=== PATIENT | female | born 1990 | race Caucasian/White ===

== ENCOUNTER → 2018-12-19 | Outpatient (CLI) | payer OTHER ==
--- NOTE | 2018-12-19 10:53 | US ---
EXAMINATION TYPE: US transvaginal DATE OF EXAM: 12/19/2018 COMPARISON: NONE CLINICAL HISTORY: N93.8 Other specified abnormal uterine and vaginal. Irreg bleeding TECHNIQUE: Transvaginal (TV). Date of LMP: 11/12/2018, G0 EXAM MEASUREMENTS: Uterus: 6.1 x 3.8 x 2.9 cm Endometrial Stripe: 0.4 cm Right Ovary: 3.2 x 1.5 x 1.4 cm Left Ovary: 2.3 x 1.2 x 1.0 cm 1. Uterus: Anteverted Prominent peripheral vascular vessels visualized 2. Endometrium: wnl 3. Right Ovary: wnl 4. Left Ovary: wnl 5. Bilateral Adnexa: wnl 6. Posterior cul-de-sac: no free fluid Heterogeneous uterus is seen. No suspicious focal mass is clearly identified. Endometrium is somewhat thinned for secretory phase of menstrual cycle. No free fluid. Both ovaries are present and felt normal in size without suspicious adnexal lesion. IMPRESSION: No significant finding is seen to account for patient's symptoms of irregular bleeding, e ndometrium is noted thinned for secretory phase of menstrual cycle.
== END ==
LOC: RADUSWWP 09:36
PROVIDERS: ATTEND Family Medicine
DX: N93.8 Other specified abnormal uterine and vaginal bleeding (principal)
CPT/HCPCS: 76830

== ENCOUNTER 2019-10-19 18:11 | Outpatient (CLI) | payer BC ==
[2019-10-19 19:21] LABS: Basophils % (A) 0 %; Eosinophils % (A) 0 %; HCT 32.9 % (34.0-46.0); HGB 10.9 gm/dL (11.4-16.0); Hypochromasia Slight; Lymphocytes # (A) 1.8 k/uL (1.0-4.8); Lymphocytes % (A) 19 %; MCH 30.3 pg (25.0-35.0); MCHC 33.3 g/dL (31.0-37.0); MCV 91.1 fL (80.0-100.0); Mean Platelet Volume 9.9; Monocytes # (A) 0.5 k/uL (0-1.0); Monocytes % (A) 5 %; Neutrophils % (A) 74 %; Platelet Count 274 k/uL (150-450); RBC 3.61 m/uL (3.80-5.40); RDW 12.3 % (11.5-15.5); WBC 9.5 k/uL (3.8-10.6)
[2019-10-19 19:26] LABS: ALT 10 U/L (4-34); AST 21 U/L (14-36); African American GFR (CKD) >90 (>60 ml/min/1.73 sqM); Blood Urea Nitrogen 7 mg/dL (7-17); LDH 376 U/L (313-618); Non-African American GFR(CKD) >90 (>60 ml/min/1.73 sqM); Uric Acid 3.7 mg/dL (3.7-7.4)
[2019-10-19 19:51] LABS: Appearance,Urine Cloudy (Clear); Bacteria,Urine Occasional /hpf; Bilirubin,Urine Negative (Negative); Blood,Urine Trace (Negative); Calcium Oxalate Crystals,Urine Occasional /hpf; Color,Urine Yellow; Glucose,Urine (UA) 3+ (Negative); Ketones,Urine 1+ (Negative); Leukocyte Esterase,Urine Large (Negative); Mucus,Urine Many /hpf; Nitrite,Urine Negative (Negative); Protein,Urine 2+ (Negative); RBC,Urine 14 /hpf (0-5); Specific Gravity,Urine 1.034 (1.001-1.035); Squamous Epithelial Cell,Urine 23 /hpf (0-4); WBC,Urine 87 /hpf (0-5)
[2019-10-19 20:28] VITALS: RESP 18; TEMP 98.8
[2019-10-19 20:30] VITALS: BP 127/64; PULSE 92
--- NOTE | 2019-11-12 11:13 | P.MSEPDOC ---
Presenting Problems - Arrival Data Date of Arrival on Unit: 10/19/19 Time of Arrival on Unit: 18:11 Mode of Transport: Ambulatory - Complaint OB-Reason for Admission/Chief Complaint: PIH Comment: admitted and assessed by Lori Kuo RN. Medical History - Information : 2 Para: 0 Term: 0 : 0 Abortions: Spontaneous or Elective: 1 Number of Living Children: 0 - Gestational Age Gestational Age by ZULMA (wks/days): 34 Weeks and 5 Days Review of Systems - Review of Systems Constitutional: No problems Breast: No problems ENT: No problems Cardiovascular: No problems Respiratory: No problems Gastrointestinal: No problems Genitourinary: No problems Musculoskeletal: No problems Neurological: No problems Skin: No problems Vital Signs - Temperature Temperature: 98.8 F Temperature Source: Oral - Pulse Pulse Oximetery Pulse Rate: 92 Pulse Assessment Method: Automatic Cuff - Respirations Respiratory Rate: 18 Oxygen Delivery Method: Room Air - Blood Pressure Right Arm Blood Pressure: 127/64 Blood Pressure Mean: 85 Blood Pressure Source: Automatic Cuff Medical Screen Scoring (Pre) - Cervical Exam Dilation: Exam Deferred Effacement: Exam Deferred Membranes: Intact - Uterine Contractions Frequency: N/A Duration: N/A Intensity: N/A - Maternal Vital Signs Maternal Temperature: N/A Maternal Blood Pressure: N/A Signs of Preeclampsia: Edema of Face = 4 Maternal Respirations: N/A - Maternal Trauma Maternal Trauma: N/A - Assessment - Baby A Baseline FHR: 145 Heart Rate - NICHD Category: Category I (Normal) = 0 NST: Reactive Position: N/A Station: N/A - Total Score - Baby A Total Score - Baby A: 4 - Total Score - Baby B Total Score - Baby B: 4 - Total Score - Baby C Total Score - Baby C: 4 - Level of Risk - Baby A Level of Risk - Baby A: Low (0-5) - Level of Risk - Baby B Level of Risk - Baby B: Low (0-5) - Level of Risk - Baby C Level of Risk - Baby C: Low (0-5) Physician Notification (Pre) - Physician Notified Physician Notified Date: 10/19/19 Physician Notified Time: 18:42 New Order Received: Yes ([facility] work up) - Notification Comment Comment: Nithin Ling RN, notified Dr. Camejo, at 1955, of lab results per previous orders given to day shift RN, Lori Kuo. Orders for pt to be discharged home with orders for bedrest/no work, increase fluid intake, and call office first thing Monday for follow up apt given. Medical Screen Scoring (Post) - Cervical Exam Dilation: Exam Deferred Effacement: Exam Deferred Membranes: Intact - Uterine Contractions Frequency: N/A Duration: N/A Intensity: N/A - Maternal Vital Signs Maternal Temperature: N/A Maternal Blood Pressure: N/A Signs of Preeclampsia: Edema of Face = 4 Maternal Respirations: N/A - Pain Assessment Pain Location and Character: Generalized Pain Scale Used: Numeric (1 - 10) Pain Intensity: 0 Pain Management Goal: 0 Pain Behavior: None Exhibited, Vocalization - Maternal Trauma Maternal Trauma: N/A - Assessment - Baby A Heart Rate: 145 Heart Rate - NICHD Category: Category I (Normal) = 0 NST: Reactive Position: N/A Station: N/A - Total Score Total Score - Baby A: 4 Total Score - Baby B: 4 Total Score - Baby C: 4 - Post Treatment Level of Risk Post Treatment Level of Risk - Baby A: Low (0-5) Post Treatment Level of Risk - Baby B: Low (0-5) Post Treatment Level of Risk - Baby C: Low (0-5) Physician Notification (Post) - Physician Notified Physician Notified Date: 10/19/19 Physician Notified Time: 19:55 Physician/Practitioner Notified:: Bashir Spoke With: Bashir New Order Received: Yes (bedrest,no work, increase fluids for hydration.) Disposition - Disposition OB Disposition: Discharge to home Discharge Date: 10/19/19 Discharge Time: 20:08 I agree with the RN Medical Screening Exam: Yes Risk & Benefit of care provided described in d/c instruction: Yes Diagnosis: RELATED CONDITIONS, UNSPECIFIED, THIRD TRIMESTER
== END 2019-10-19 20:08 | disposition home or self-care (01) ==
LOC: FBPOP 18:11
PROVIDERS: ATTEND Obstetrics & Gynecology
DX: O13.3 Gestational [pregnancy-induced] hypertension without significant proteinuria, third trimester (principal); Z3A.34 34 weeks gestation of pregnancy
CPT/HCPCS: 59025; 81001; 82565; 83615; 84450; 84460; 84520; 84550; 85025; 99215

== ENCOUNTER 2019-11-15 17:58 | Inpatient (IN) | payer BC ==
[2019-11-15] MEDS ORDERED: TERBUTALINE 1 MG/ML VIAL SQ PRN (18:55)
[2019-11-15] MEDS ORDERED: METHYLERGONOVINE 0.2 MG/ML 1 ML AMP IM PRN (18:55)
[2019-11-15] MEDS ORDERED: LIDOCAINE 0.5% (PF) 5 MG/ML (50 ML SDV) SQ PRN (18:55)
[2019-11-15] MEDS ORDERED: OXYTOCIN 10 UNIT/ML 1 ML VIAL IM PRN (18:55)
[2019-11-15] MEDS ORDERED: CARBOPROST TROMETHAMINE 250 MCG/ML 1 ML AMP IM PRN (18:55)
[2019-11-15] MEDS ORDERED: PENICILLIN G POTASSIUM 5,000,000 UNIT in DEXTROSE 5% IN WATER 100 ML IVPB STA ×2 (19:04)
[2019-11-15 19:23] LABS: Basophils # (A) 0.1 k/uL (0-0.2); Basophils % (A) 1 %; Eosinophils % (A) 0 %; HGB 11.7 gm/dL (11.4-16.0); Hypochromasia Slight; Lymphocytes # (A) 1.8 k/uL (1.0-4.8); Lymphocytes % (A) 14 %; MCH 28.1 pg (25.0-35.0); MCHC 31.7 g/dL (31.0-37.0); MCV 88.7 fL (80.0-100.0); Mean Platelet Volume 9.7; Monocytes # (A) 0.4 k/uL (0-1.0); Monocytes % (A) 3 %; Neutrophils # (A) 10.6 k/uL (1.3-7.7); Neutrophils % (A) 81 %; Platelet Count 278 k/uL (150-450); RBC 4.17 m/uL (3.80-5.40); RDW 13.5 % (11.5-15.5); WBC 13.2 k/uL (3.8-10.6)
[2019-11-15] MEDS: LACTATED RINGERS 1,000 ML IV SCH (19:28)
--- NOTE | 2019-11-15 19:30 | P.HPOB ---
History of Present Illness H&P Date: 11/15/19 This is a 28-year-old female 2 para 0010 EDC 11/25/2019 at 38-4/7 weeks' gestation. Patient presented to labor and delivery with a history of pelvic cramping, and possible ruptured membranes. Fetus has been active throughout the . She denies headache, visual changes, or right upper quadrant pain. history is significant for AB+ blood type, rubella status immune. Urine culture, hepatitis B surface antigen, HIV testing, gonorrhea and come lytic cultures all negative. One-hour Glucola 132. Group B strep cultures positive. Past medical history is essentially negative. Past surgical history wisdom teeth extracted. Current medications vitamins. ALLERGIES none known. Family history significant for hypertension, diabetes. Reproductive history significant for spontaneous miscarriage at 5 weeks gestation. Social history patient is never been a smoker, she is a nurse at our hospital, she is to her [employer]. She denies alcohol or drug use. On exam patient is 5 foot 5 inches, 219 pounds, initial blood pressure 170/97, repeat 171/97. Repeat blood pressures every 5 minutes remain in the same range. Pulse 1:30, respirations 20, temperature 98.3, 97% O2 saturation. The extremities reveal 2+ edema. She has normal reflexes at 1+ in bilateral lower extremities. Chest is clear in all martinez. Cervix is 9-1/2 cm dilated, 100% effaced, -1 station, vertex presentation. In examining the patient spontaneous amniorrhexis occurs at the bedside, thin meconium-stained fluid. heart rate is in the 140s with frequent accelerations consistent with reactive NST. Impression 38-4/7 weeks intrauterine , severe preeclamptic by blood pressure parameters, active labor, thin meconium-stained fluid. Plan: anesthesia has been notified and labetolol is being given at the bedside with close maternal and surveillance. Consideration for magnesium sulfate. AST, ALTs, uric acid, CBC all drawn. Anticipate normal spontaneous vaginal delivery. Review of Systems Patient denies headache, visual changes, right upper quadrant pain. Constitutional: Reports as per HPI Past Medical History Past Medical History: No Reported History History of Any Multi-Drug Resistant Organisms: None Reported Past Surgical History: No Surgical Hx Reported Smoking Status: Never smoker Medications and Allergies Home Medications Medication Instructions Recorded Confirmed Type Acetaminophen [Tylenol] 325 mg PO DIRECTED PRN 10/19/19 11/15/19 History Pnv No.95/Ferrous Fum/Folic AC 1 each PO DAILY MDD 1 tab 10/19/19 11/15/19 History [ Multivitamin Tablet] Allergies Allergy/AdvReac Type Severity Reaction Status Date / Time No Known Allergies Allergy Verified 06/21/18 09:10 Exam Intake and Output 11/15/19 11/15/19 11/15/19 06:59 14:59 22:59 Other: Weight 99.337 kg See dictation under HPI please Assessment and Plan Assessment: 38-4/7 weeks intrauterine , active spontaneous labor, thin meconium- stained fluid, severe preeclampsia her blood pressure parameters. Labs pending. Anesthesia aware and at the bedside. Labetalol has been given 10 mg IV push, 5 mg IV push, 5 mg IV push, and an additional 10 mg IV push. Blood pressure now 135/85. Pulse 103. Plan: Continue close maternal and surveillance. Consider magnesium sulfate prophylaxis. Anticipating normal spontaneous vaginal delivery. Time with Patient: Greater than 30
[2019-11-15 19:35] LABS: Appearance,Urine Cloudy (Clear); Bilirubin,Urine Negative (Negative); Blood,Urine Moderate (Negative); Calcium Oxalate Crystals,Urine Few /hpf; Color,Urine Yellow; Glucose,Urine (UA) 1+ (Negative); Leukocyte Esterase,Urine Moderate (Negative); Mucus,Urine Few /hpf; Nitrite,Urine Negative (Negative); Protein,Urine 1+ (Negative); RBC,Urine 54 /hpf (0-5); Specific Gravity,Urine 1.025 (1.001-1.035); Squamous Epithelial Cell,Urine 2 /hpf (0-4); Urobilinogen,Urine <2.0 mg/dL (<2.0); WBC,Urine 14 /hpf (0-5)
[2019-11-15 19:39] LABS: Ketones,Urine 2+ (Negative)
[2019-11-15 19:48] LABS: ALT 12 U/L (4-34); AST 25 U/L (14-36); African American GFR (CKD) >90 (>60 ml/min/1.73 sqM); Blood Urea Nitrogen 8 mg/dL (7-17); LDH 489 U/L (313-618); Non-African American GFR(CKD) >90 (>60 ml/min/1.73 sqM); Uric Acid 3.8 mg/dL (3.7-7.4)
[2019-11-15 20:03] LABS: INR 0.9 (<1.2); Partial Thromboplastin Time 24.1 sec (22.0-30.0); Prothrombin Time 9.3 sec (9.0-12.0)
[2019-11-15] MEDS ORDERED: diphenhydrAMINE 50 MG/ML 1 ML VIAL IVP PRN ×2 (21:24)
[2019-11-15] MEDS ORDERED: diphenhydrAMINE 25 MG CAP PO PRN (21:24)
[2019-11-15] MEDS ORDERED: diphenhydrAMINE 50 MG CAP PO PRN (21:24)
[2019-11-15] MEDS ORDERED: LANOLIN CREAM 5 GM TUBE TOPICAL PRN (21:24)
[2019-11-15] MEDS ORDERED: BENZOCAINE/MENTHOL SPRAY 1 GM/SPRAY AEROSOL TOPICAL PRN (21:24)
[2019-11-15] MEDS ORDERED: diphenhydrAMINE ELIXIR 25 MG/10 ML CUP PO PRN (21:24)
[2019-11-15] MEDS ORDERED: HYDROCORTISONE 2.5% RECTAL CREAM 30 GM TUBE RECTAL PRN (21:24)
[2019-11-15] MEDS ORDERED: ZOLPIDEM 5 MG TAB PO PRN (21:24)
[2019-11-15] MEDS ORDERED: WITCH HAZEL 1 EACH MED..PAD TOPICAL PRN (21:24)
[2019-11-15] MEDS ORDERED: SIMETHICONE 80 MG CHEWABLE PO PRN (21:24)
--- NOTE | 2019-11-15 21:24 | P.PROBDLV ---
Vaginal Delivery Note - . Vaginal Delivery Note: This is a 28-year-old female 2 para 0010 EDC 11/25/2019 at 38-4/7 weeks' gestation. Patient presented to labor and delivery with a thought that she had fluid leakage and that her water broke. Her membranes were noted to be intact, however she was 9 cm dilated on admission. Additionally, initial blood pressure was 170/9 7. Serial blood pressures every 5 minutes apart remained in the same level. Preeclamptic labs were drawn, patient was admitted. Spontaneous amniorrhexis revealed thin meconium-stained fluid. heart rate was very reassuring throughout the first and second stages of labor. Anesthesia was summoned, labetalol was given 10 mg, followed by 5 mg, followed by 5 mg, followed by an additional 10 mg for total of 30 mg IV push. Blood pressure settled into the 130s over 80s. Pulse went down to the 90-100 range, 130 on admission. Please see admitting history and physical for details. Analgesic options were offered and declined. Patient became completely dilated at 2010 hours and began the second stage of labor at that time. Blood pressure remained in the 130s over 80s. Ultimately the perineal body was prepped and draped in usual sterile fashion. Infant's head delivered occiput anterior and he restituted accordingly. There was no nuchal cord noted. The left or anterior shoulder delivered from underneath the pubic symphysis easily, at which time the oropharynx, nasopharynx, and external nares were all bulb suctioned on the perineal body. Patient was officially delivered of a liveborn male infant at 2053 hours. Umbilical cord was doubly clamped and ligated, he was handed to waiting nurses for evaluation where scores of 8 and 9 at one and 5 minutes respectively were given. The weight 8 lbs. 6 oz. or 3790 g. The placenta delivered spontaneously, it was inspected and noted to be intact with trivascular cord at 2055 hours. Uterus is then massaged. Careful inspection of the cervix, vagina, perineum, periurethral, and perirectal areas revealed a second-degree midline laceration. This was injected with 1% lidocaine and repaired in the usual fashion using 3-0 repeat suture. Total estimated blood loss 400 mL's. All sponge needle and enhancement counts are correct at the end of the procedure. Patient is requesting circumcision for her son. Blood pressure upon completion of delivery was 135/82. All preeclamptic labs were within normal limits. Blood pressure will be monitored carefully after delivery. My diagnosis at this time would be severe - induced hypertension upon admission, instead of the thought of severe preeclampsia.
[2019-11-15] MEDS ORDERED: OXYTOCIN 20 UNITS/1000 ML NS 1,000 ML IV SCH (21:30)
[2019-11-15] MEDS: ACETAMINOPHEN TAB 325 MG TAB PO PRN (22:18)
[2019-11-15] MEDS ORDERED: PENICILLIN G POTASSIUM 2,500,000 UNIT in DEXTROSE 5% IN WATER 100 ML IVPB SCH ×2 (23:00)
[2019-11-16] MEDS: ACETAMINOPHEN TAB 325 MG TAB PO PRN (06:41)
[2019-11-16] MEDS: SENNOSIDES-DOCUSATE SODIUM 1 EACH TAB PO SCH ×2 (08:44→21:30)
[2019-11-16] MEDS ORDERED: LABETALOL 100 MG TAB PO SCH (10:00)
--- NOTE | 2019-11-16 10:19 | P.PN ---
Subjective Progress Note Date: 11/16/19 Principal diagnosis: day #1 Denies headache, visual changes, right upper quadrant pain. Minimal to moderate lochia rubra. Pain well controlled. Objective - Vital Signs Vital signs: Vital Signs Temp 99.4 F 11/16/19 08:00 Pulse 120 H 11/16/19 08:00 Resp 18 11/16/19 08:00 BP 141/84 11/16/19 08:00 Pulse Ox 97 11/16/19 08:00 Intake & Output 11/15/19 11/16/19 11/16/19 18:59 06:59 18:59 Output Total 1076 Balance -1076 Weight 99.337 kg Output: Gastric Drainage 276 Estimated Blood Loss 400 Other 400 Other: # Voids 1 1 - Constitutional General appearance: Present: average body habitus, cooperative - EENT Eyes: Present: PERRLA ENT: Present: hearing grossly normal - Neck Neck: Present: normal ROM Thyroid: bilateral: normal size - Respiratory Respiratory: bilateral: CTA - Cardiovascular Rhythm: regular - Gastrointestinal General gastrointestinal: Present: normal bowel sounds - Genitourinary Genitourinary Comment(s): Perineum clean and dry, intact. Fundus firm, midline, symmetric, 18 week size. - Integumentary Integumentary: Present: normal - Neurologic Neurologic: Present: CNII-XII intact - Musculoskeletal Musculoskeletal: Present: gait normal, strength equal bilaterally - Psychiatric Psychiatric: Present: A&O x's 3, appropriate affect, intact judgment & insight - Labs CBC & Chem 7: 11/15/19 19:10 11/15/19 19:10 Labs: Abnormal Lab Results - Last 24 Hours (Table) 11/15/19 11/15/19 11/15/19 Range/Units 19:10 19:10 19:20 WBC 13.2 H (3.8-10.6) k/uL Neutrophils # 10.6 H (1.3-7.7) k/uL Fibrinogen 596 H (200-500) mg/dL Urine Appearance Cloudy H (Clear) Urine Protein 1+ H (Negative) Urine Glucose (UA) 1+ H (Negative) Urine Ketones 2+ H (Negative) Urine Blood Moderate H (Negative) Ur Leukocyte Esterase Moderate H (Negative) Urine RBC 54 H (0-5) /hpf Urine WBC 14 H (0-5) /hpf Calcium Oxalate Crystal Few H (None) /hpf Urine Mucus Few H (None) /hpf Assessment and Plan Assessment: day #1. Blood pressures 130s to 140s over 70s to 80s, pulse remains 120 to 130s. Plan: We will begin labetalol 100 mg twice a day. Continue care and vital sign surveillance. Likely discharge home tomorrow. Circumcision performed. Time with Patient: Less than 30
[2019-11-16] MEDS: IBUPROFEN 600 MG TAB PO PRN (16:51)
[2019-11-16] MEDS: LABETALOL 200 MG TAB PO SCH (21:29)
[2019-11-16] MEDS: LACTATED RINGERS 1,000 ML IV SCH (22:58)
[2019-11-17] MEDS: IBUPROFEN 600 MG TAB PO PRN (05:06)
--- NOTE | 2019-11-17 09:25 | P.DS ---
Providers Date of admission: 11/15/19 18:51 Expected date of discharge: 11/17/19 Attending physician: Eugenia Brantley Primary care physician: Stated None Hospital Course: This is a 28-year-old white female 2 para 0010 EDC 11/25/2009 at 38-4/7 weeks' gestation. Patient presented from home in active spontaneous labor. Blood pressure on admission 170/97. This was checked every 5 minutes and sustained. Anesthesia consult was obtained. Artificial amniorrhexis revealed light meconium-stained fluid. Labetalol was pushed at the bedside 10 mg, 5 mg, 5 mg, and finally an additional 10 mg for good blood pressure control. Blood p ressure settled in the 135/85 range, pulse on admission 1:30. Pulse decreased to 107 with above regime. Please see my dictated note for details on admission. Patient went on to ultimately to deliver a liveborn male infant with scores of 8 and 9 at one and 5 minutes respectively. He weighed 3790 g or 8 lbs. 6 oz. There was a second-degree perineal laceration encountered and repaired. Estimated blood loss 400 mL's. Please see dictated delivery note for details. Placenta was sent to pathology for severe -induced hypertension, trivascular cord, otherwise intact with a fair amount of calcifications. In the . Blood pressures continued to elevate, and have subsequently stabilized on labetalol 200 mg twice daily. Blood pressure this morning 137/85. Patient continues to deny any headache, visual changes, or right upper quadrant pain. All preeclamptic labs on admission were noted to be within normal limits. male has been circumcised and is doing well. Breasts are not engorged, double electric breast pump prescription is given. Perineal body is clean and dry. Extremities continued to reveal 2+ edema, normal reflexes. Fundus is firm, midline, symmetric, 18 week size. Patient is judged to be in reasonably good condition for discharge home. I have given her prescription for labetalol 200 mg to be taken 1 pill twice daily. Patient will continue to take her blood pressure on a daily basis. I've asked her to follow-up in the office in 2 weeks with these blood pressure readings. I've asked her to call our office with any headache, visual changes, or right upper quadrant pain. She will call with any fevers shakes or chills, foul smelling or copious lochia, with the passage of large blood clots, with any pain not alleviated by [id number] products, or indeed with any concerns. [place] infant will follow-up with harmonic analyst as per recommendations. Patient Condition at Discharge: Good Plan - Discharge Summary New Discharge Prescriptions: No Action Pnv No.95/Ferrous Fum/Folic AC [ Multivitamin Tablet] 1 each PO DAILY MDD 1 tab Acetaminophen [Tylenol] 325 mg PO DIRECTED PRN PRN Reason: Pain Discharge Medication List Acetaminophen [Tylenol] 325 mg PO DIRECTED PRN 10/19/19 [History] Pnv No.95/Ferrous Fum/Folic AC [ Multivitamin Tablet] 1 each PO DAILY MDD 1 tab 10/19/19 [History] Follow up Appointment(s)/Referral(s): Eugenia Brantley DO [Doctor of Osteopathic Medicine] - 2 Weeks
[2019-11-17] MEDS: SENNOSIDES-DOCUSATE SODIUM 1 EACH TAB PO SCH ×2 (09:35→20:49)
[2019-11-17 09:36] VITALS: RESP 18
[2019-11-17] MEDS: LABETALOL 200 MG TAB PO SCH ×2 (16:20→20:16)
[2019-11-17] MEDS: ACETAMINOPHEN TAB 325 MG TAB PO PRN (18:14)
[2019-11-17 18:42] VITALS: BP 118/80; PULSE 103; TEMP 98.4
== END 2019-11-17 20:30 | disposition home or self-care (01) | DRG 807 ==
LOC: FBPOP 17:58 → 4FBP 18:51
PROVIDERS: ADMIT Obstetrics & Gynecology; ATTEND Obstetrics & Gynecology Obstetrics
PROC: 0KQM0ZZ Repair Perineum Muscle, Open Approach (ICD-10-PCS; principal; 2019-11-15)
PROC: 10E0XZZ Delivery of Products of Conception, External Approach (ICD-10-PCS; principal; 2019-11-15)
DX: O14.14 Severe pre-eclampsia complicating childbirth (principal); Z37.0 Single live birth; O70.1 Second degree perineal laceration during delivery; O77.0 Labor and delivery complicated by meconium in amniotic fluid; Z3A.38 38 weeks gestation of pregnancy; Z79.899 Other long term (current) drug therapy; Z83.3 Family history of diabetes mellitus; Z82.49 Family history of ischemic heart disease and other diseases of the circulatory system
CPT/HCPCS: 81001; 81003; 82565; 83615; 84450; 84460; 84520; 84550; 85025; 85384; 85610; 85730; 86850; 86900; 86901; 88307

== ENCOUNTER 2020-06-08 07:52 | Observation (INO) | payer BC ==
[2020-06-08] MEDS ORDERED: ORPHENADRINE 30 MG/ML 2 ML VIAL IVP STA (08:34)
[2020-06-08] MEDS ORDERED: KETOROLAC 15 MG/ML 1 ML VIAL IVP STA (08:34)
--- NOTE | 2020-06-08 08:42 | ED ---
General Adult HPI <Dawson Clancy - Last Filed: 06/08/20 10:45> - General Source: patient, EMS, RN notes reviewed Mode of arrival: EMS Limitations: no limitations <Chico Ahumada - Last Filed: 06/08/20 14:26> - General Chief complaint: Back Pain/Injury Stated complaint: Back Pain Time Seen by Provider: 06/08/20 08:20 - History of Present Illness Initial comments: 29-year-old female with a past medical history of back pain presents to the emergency department for a chief complaint of low back pain radiating down the left leg. Patient reports that she has a history of back pain that comes and goes. States she has seen Dr. Tatum before and had an MRI performed. Patient reports she had a bulging disc at that time which was a couple years ago. Patient reports that 5 days ago she was painting her house which triggered her pain. States that 4 days ago she went to lift her toddler out of the car seat and felt a sudden pain in the left lower back. Patient states it is painful to walk or stand up straight. Patient denies any weakness of the legs. Patient denies any bladder or bowel changes. Denies any fevers or chills. Patient denies any chance of . Patient has no other complaints at this time including shortness of breath, chest pain, abdominal pain, nausea or vomiting, headache, or visual changes. (Chico Ahumada) - Related Data Home Medications Medication Instructions Recorded Confirmed HYDROcodone/APAP 7.5-325MG [Leming 1 tab PO ONCE PRN 06/08/20 06/08/20 7.5-325] Allergies Allergy/AdvReac Type Severity Reaction Status Date / Time No Known Allergies Allergy Verified 06/08/20 11:18 Review of Systems ROS Other: All systems not noted in ROS Statement are negative. <Dawson Clancy - Last Filed: 06/08/20 10:45> ROS Other: All systems not noted in ROS Statement are negative. <Chico Ahumada - Last Filed: 06/08/20 14:26> ROS Statement: Those systems with pertinent positive or pertinent negative responses have been documented in the HPI. Past Medical History Past Medical History: No Reported History History of Any Multi-Drug Resistant Organisms: None Reported Past Surgical History: No Surgical Hx Reported Past Anesthesia/Blood Transfusion Reactions: No Reported Reaction Past Psychological History: No Psychological Hx Reported Smoking Status: Never smoker Past Alcohol Use History: Rare Past Drug Use History: None Reported - Past Family History Mother Family Medical History: No Reported History <Chico Ahumada - Last Filed: 06/08/20 14:26> General Exam Limitations: no limitations General appearance: alert, in no apparent distress Head exam: Present: atraumatic, normocephalic, normal inspection Eye exam: Present: normal appearance, PERRL, EOMI. Absent: scleral icterus, conjunctival injection, periorbital swelling ENT exam: Present: normal exam, mucous membranes moist Neck exam: Present: normal inspection, full ROM. Absent: tenderness, meningismus, lymphadenopathy Respiratory exam: Present: normal lung sounds bilaterally. Absent: respiratory distress, wheezes, rales, rhonchi, stridor Cardiovascular Exam: Present: regular rate, normal rhythm, normal heart sounds. Absent: bradycardia, tachycardia, irregular rhythm GI/Abdominal exam: Present: soft, normal bowel sounds. Absent: distended, tenderness, guarding, rebound, rigid Back exam: Absent: CVA tenderness (R), CVA tenderness (L), paraspinal tenderness, vertebral tenderness Neurological exam: Present: alert <Chico Ahumada - Last Filed: 06/08/20 14:26> Course <Dawson Clancy - Last Filed: 06/08/20 10:45> Vital Signs 06/08/20 06/08/20 07:52 10:20 Temperature 99.0 F Pulse Rate 105 H Respiratory 17 Rate Blood Pressure 129/81 128/76 O2 Sat by Pulse 99 Oximetry - Reevaluation(s) Reevaluation #1: 06/08/20 10:45 PA supervision: I did personally evaluate this case patient will be admitted for intractable back pain. (Dawson Clancy) Medical Decision Making - Lab Data Result diagrams: 06/08/20 11:31 06/08/20 11:31 <Chico Ahumada - Last Filed: 06/08/20 14:26> - Medical Decision Making Patient seen and evaluated in the emergency room. Patient came in by EMS. Patient reports she had to crawl to the bathroom as her pain was so intense. She denies bladder or bowel changes, numbness or tingling in the groin or buttock, denies fevers. I did give patient several different pain medications. I attempted to ambulate patient and she is unable to stand at this time secondary to pain. is very concerned. Patient tried to call Dr. Tatum who she has seen in the past and they cannot see her until June. At this time patient will be admitted. Dr. Hurtado requests CT of the lumbar spine with contrast. (Chico Ahumada) Disposition <Dawson Clancy - Last Filed: 06/08/20 10:45> Is patient prescribed a controlled substance at d/c from ED?: No Time of Disposition: 10:48 <Chico Ahumada - Last Filed: 06/08/20 14:26> Clinical Impression: Intractable back pain, Unable to ambulate Disposition: ADMITTED IP TO THIS HOSP Condition: Fair
[2020-06-08] MEDS ORDERED: ONDANSETRON 4 MG/2 ML VIAL IVP STA (09:31)
[2020-06-08] MEDS ORDERED: HYDROmorphone 0.5 MG/0.5 ML SYRINGE IVP STA (09:31)
[2020-06-08] MEDS ORDERED: methylPREDNISolone SOD SUCCI 125 MG/2 ML VIAL IV STA (09:38)
[2020-06-08] MEDS ORDERED: HYDROmorphone 0.5 MG/0.5 ML SYRINGE IVP PRN (10:43)
[2020-06-08] MEDS ORDERED: NALOXONE 0.4 MG/ML 1 ML VIAL IV PRN (10:43)
[2020-06-08 11:38] LABS: Basophils % (A) 1 %; Eosinophils % (A) 1 %; HCT 41.9 % (34.0-46.0); HGB 13.3 gm/dL (11.4-16.0); Lymphocytes # (A) 1.3 k/uL (1.0-4.8); Lymphocytes % (A) 25 %; MCH 28.9 pg (25.0-35.0); MCHC 31.8 g/dL (31.0-37.0); MCV 91.1 fL (80.0-100.0); Mean Platelet Volume 7.5; Monocytes # (A) 0.2 k/uL (0-1.0); Monocytes % (A) 4 %; Neutrophils # (A) 3.7 k/uL (1.3-7.7); Neutrophils % (A) 69 %; Platelet Count 237 k/uL (150-450); RDW 13.3 % (11.5-15.5); WBC 5.4 k/uL (3.8-10.6)
[2020-06-08 11:54] LABS: HCG,Qualitative Serum Not Detected
[2020-06-08 11:56] LABS: ALT 11 U/L (4-34); AST 19 U/L (14-36); African American GFR (CKD) >90 (>60 ml/min/1.73 sqM); Albumin 4.4 g/dL (3.5-5.0); Alkaline Phosphatase 122 U/L (38-126); Anion Gap 8 mmol/L; Blood Urea Nitrogen 12 mg/dL (7-17); Calcium 9.3 mg/dL (8.4-10.2); Carbon Dioxide 27 mmol/L (22-30); Chloride 104 mmol/L (98-107); Glucose 97 mg/dL (74-99); Non-African American GFR(CKD) >90 (>60 ml/min/1.73 sqM); Potassium 4.3 mmol/L (3.5-5.1); Sodium 139 mmol/L (137-145); Total Bilirubin 0.4 mg/dL (0.2-1.3); Total Protein 7.5 g/dL (6.3-8.2)
--- NOTE | 2020-06-08 12:28 | CT ---
EXAMINATION TYPE: CT lumbar spine w con DATE OF EXAM: 06/08/2020 COMPARISON: None HISTORY: 29-year-old female Back pain. TECHNIQUE: Contiguous axial scanning of the lumbar spine performed with IV Contrast, patient injected with 100 mL of Isovue 300. Coronal/sagittal reconstructions performed. CT DLP: 918 mGycm Automated exposure control for dose reduction was used. FINDINGS: Vertebral body heights are preserved and alignment is maintained. Mild degenerative disc disease L4-L5 and L5-S1 with disc bulging. Mild endplate spondylosis at L5-S1. Minimal facet spurring on the right at L5-S1. At L4-L5, posterior disc bulge impressing on the ventral thecal sac. No significant spinal canal sten osis. There is minimal inferior left neuroforaminal narrowing. At L5-S1, diffuse disc bulge with possible superimposed left paracentral disc extrusion that may impi nge the traversing left S1 nerve root and contributes to a mild overall spinal canal stenosis. Refer to axial images 69 and 70 and sagittal image 30. Mild left neuroforaminal stenosis. IMPRESSION: 1. MILD DEGENERATIVE DISC DISEASE LOWER LUMBAR SPINE. MINIMAL FACET SPURRING PARTICULARLY AT L5-S1. 2. BULGING DISC AT L5-S1 WITH POSSIBLE SUPERIMPOSED LEFT PARACENTRAL DISC EXTRUSION THAT MAY IMPINGE THE TRAVERSING LEFT S1 NERVE ROOT AND CONTRIBUTING TO A MILD OVERALL SPINAL CANAL STENOSIS. MILD OVER ALL LEFT NEUROFORAMINAL STENOSIS. CORRELATE FOR CORRESPONDING RADICULAR SYMPTOMS.
[2020-06-08 13:23] LABS: Appearance,Urine Clear (Clear); Bilirubin,Urine Negative (Negative); Blood,Urine Negative (Negative); Color,Urine Yellow; Glucose,Urine (UA) Negative (Negative); Ketones,Urine Negative (Negative); Leukocyte Esterase,Urine Trace (Negative); Mucus,Urine Moderate /hpf; Nitrite,Urine Negative (Negative); Protein,Urine Negative (Negative); RBC,Urine 1 /hpf (0-5); Specific Gravity,Urine 1.031 (1.001-1.035); Squamous Epithelial Cell,Urine 4 /hpf (0-4); Urobilinogen,Urine <2.0 mg/dL (<2.0); WBC,Urine 3 /hpf (0-5)
[2020-06-08] MEDS ORDERED: CYCLOBENZAPRINE 5 MG TAB PO PRN (15:15)
--- NOTE | 2020-06-08 15:48 | P.HPIM ---
History of Present Illness 29-year-old female with a past medical history of back pain presents to the emergency department for a chief complaint of low back pain radiating down the left leg. Patient reports that she has a history of back pain that comes and goes. States she has seen Dr. Tatum before and had an MRI performed. Patient reports she had a bulging disc at that time which was a couple years ago. Patient reports that 5 days ago she was painting her house which triggered her pain. States that 4 days ago she went to lift her toddler out of the car seat and felt a sudden pain in the left lower back. Patient states it is painful to walk or stand up straight. Patient denies any weakness of the legs. Patient denies any bladder or bowel changes. Denies any fevers or chills. Patient denies any chance of . Patient has no other complaints at this time including shortness of breath, chest pain, abdominal pain, nausea or vomiting, headache, or visual changes. Patient denied any weakness in any of the legs. Patient had similar back pain in the past has seen also by surgery in the past. Review of Systems REVIEW OF SYSTEMS: CONSTITUTIONAL: No fever, no malaise, no fatigue. HEENT: No recent visual problems or hearing problems. Denied any sore throat. CARDIOVASCULAR: No chest pain, orthopnea, PND, no palpitations, no syncope. PULMONARY: No shortness of breath, no cough, no hemoptysis. GASTROINTESTINAL: No diarrhea, no nausea, no vomiting, no abdominal pain. NEUROLOGICAL: No headaches, no weakness, no numbness. HEMATOLOGICAL: Denies any bleeding or petechiae. GENITOURINARY: Denies any burning micturition, frequency, or urgency. MUSCULOSKELETAL/RHEUMATOLOGICAL: As mentioned in HPI ENDOCRINE: Denies any polyuria or polydipsia. The rest of the 14-point review of systems is negative. Past Medical History Past Medical History: No Reported History Additional Past Medical History / Comment(s): Low back pain, bulging discs, pt is currently breast feeding. History of Any Multi-Drug Resistant Organisms: None Reported Past Surgical History: No Surgical Hx Reported Additional Past Surgical History / Comment(s): [place] teeth extractions with sedation. Past Anesthesia/Blood Transfusion Reactions: No Reported Reaction Past Psychological History: No Psychological Hx Reported Smoking Status: Never smoker Past Alcohol Use History: Rare Past Drug Use History: None Reported - Past Family History Mother Family Medical History: No Reported History Additional Family Medical History / Comment(s): Mother is healthy Father Family Medical History: Hypertension Medications and Allergies Home Medications Medication Instructions Recorded Confirmed Type HYDROcodone/APAP 7.5-325MG [[place] 1 tab PO ONCE PRN 06/08/20 06/08/20 History 7.5-325] Allergies Allergy/AdvReac Type Severity Reaction Status Date / Time No Known Allergies Allergy Verified 06/08/20 11:18 Physical Exam Vitals: Vital Signs Temp Pulse Pulse Resp BP BP Pulse Ox 06/08/20 12:48 98.6 F 88 16 131/79 95 06/08/20 10:20 128/76 06/08/20 07:52 99.0 F 105 H 17 129/81 99 Intake and Output 06/08/20 06/08/20 06/08/20 06:59 14:59 22:59 Other: Weight 77.111 kg PHYSICAL EXAMINATION: GENERAL: The patient is alert and oriented x3, not in any acute distress. Well developed, well nourished. HEENT: Pupils are round and equally reacting to light. EOMI. No scleral icterus. No conjunctival pallor. Normocephalic, atraumatic. No pharyngeal erythema. No thyromegaly. CARDIOVASCULAR: S1 and S2 present. No murmurs, rubs, or gallops. PULMONARY: Chest is clear to auscultation, no wheezing or crackles. ABDOMEN: Soft, nontender, nondistended, normoactive bowel sounds. No palpable organomegaly. MUSCULOSKELETAL: Mild tenderness in the left paraspinal area in the lower lumbar region EXTREMITIES: No cyanosis, clubbing, or pedal edema. NEUROLOGICAL: Gross neurological examination did not reveal any focal deficits. SKIN: No rashes. Results CBC & Chem 7: 06/08/20 11:31 06/08/20 11:31 Labs: Abnormal Lab Results - Last 24 Hours (Table) 06/08/20 Range/Units 12:50 Ur Leukocyte Esterase Trace H (Negative) Urine Mucus Moderate H (None) /hpf Thrombosis Risk Factor Assmnt - Choose All That Apply Any of the Below Risk Factors Present?: Yes Each Factor Represents 1 point: Obesity (BMI >25) Other Risk Factors: No Other congenital or acquired thrombophilia - If yes, enter type in comment: No Thrombosis Risk Factor Assessment Total Risk Factor Score: 1 Thrombosis Risk Factor Assessment Level: Low Risk Assessment and Plan Plan: -Back pain: Secondary to prolapsed disc at L5-S1 level, CT did show spurring in that area. And the disc is impinging on S1 nerve root. Patient does have radiculopathy secondary to that. Patient was started on anti-intermittent medications to be continued along with anti-inflammatory medications and also start her on Decadron and patient is already on morphine and also muscle relaxant and orthopedic surgery was consulted. Decision regarding epidural steroids injections as per orthopedic surgery -Tachycardia secondary to pain: Expected to improve with the above-mentioned pain management. -DVT prophylaxis early ambulation
[2020-06-08] MEDS: KETOROLAC 15 MG/ML 1 ML VIAL IVP PRN (16:29)
[2020-06-08] MEDS: SODIUM CHLORIDE 0.9% 1,000 ML IV SCH (17:20)
[2020-06-08] MEDS: FAMOTIDINE 20 MG TAB PO SCH (20:47)
[2020-06-08] MEDS: dexAMETHasone 4 MG TAB PO SCH (20:47)
[2020-06-09] MEDS: SODIUM CHLORIDE 0.9% 1,000 ML IV SCH ×3 (03:14→16:54)
[2020-06-09] MEDS: FAMOTIDINE 20 MG TAB PO SCH (08:39)
[2020-06-09] MEDS: dexAMETHasone 4 MG TAB PO SCH (08:39)
[2020-06-09] MEDS: KETOROLAC 15 MG/ML 1 ML VIAL IVP PRN (10:39)
--- NOTE | 2020-06-09 10:40 | P.PAINCN ---
History of Present Illness - Reason for Consult Consult date: 06/09/20 - History of Present Illness This is a 29 years old female, was admitted to [facility] with a chief complaint of severe intractable low back pain with radiation to the left lower extremity, the symptoms started 5 days ago, after she was trying to hold her 5-month-old baby, the pain is constant intractable radiates from the low back to her left leg, she reported that she had chronic low back pain started 5 years ago, with none of low back pain over the last 5 years, currently the pain is severe, with intensity at 8/10 increased to 10 over 10 when she tried to ambulate Past Medical History Past Medical History: No Reported History Additional Past Medical History / Comment(s): Low back pain, bulging discs, pt is currently breast feeding. History of Any Multi-Drug Resistant Organisms: None Reported Past Surgical History: No Surgical Hx Reported Additional Past Surgical History / Comment(s): [place] teeth extractions with sedation. Past Anesthesia/Blood Transfusion Reactions: No Reported Reaction Past Psychological History: No Psychological Hx Reported Smoking Status: Never smoker Past Alcohol Use History: Rare Past Drug Use History: None Reported - Past Family History Mother Family Medical History: No Reported History Additional Family Medical History / Comment(s): Mother is healthy Father Family Medical History: Hypertension Medications and Allergies Home Medications Medication Instructions Recorded Confirmed Type HYDROcodone/APAP 7.5-325MG [[place] 1 tab PO ONCE PRN 06/08/20 06/08/20 History 7.5-325] Allergies Allergy/AdvReac Type Severity Reaction Status Date / Time No Known Allergies Allergy Verified 06/08/20 11:18 Physical Exam Vitals: Vital Signs Temp Pulse Resp BP Pulse Ox 06/09/20 05:00 97.9 F 98 18 125/67 06/08/20 20:41 98.4 F 99 16 131/69 97 06/08/20 12:48 98.6 F 88 16 131/79 95 Intake and Output 06/08/20 06/09/20 06/09/20 22:59 06:59 14:59 Intake Total 1580 1040 Balance 1580 1040 Intake: Intake, IV Titration 400 800 Amount Sodium Chloride 0.9% 1, 400 800 000 ml @ 100 mls/hr IV . Q10H LARRY Rx#:[id number] Oral 1180 240 Other: # Voids 1 1 Physical Examinations : -Constitutiona : Cooperative , not in acute distress . -HEENT : nech : supple , no Lymphadenopathy , normal thyroid size . : eyes : no ptosis , no icterus, no photophobia . - neurologic : Cranial nerve II to XII intact , no focal neurological deffecit . -psychatric : alert , oriented X 3 , appropriate affect , intact judgment and insight . -Lymphatic : no Lymphadenopathy . - musculoskeltal : Lumber spine moter stegnth lower extremities ,thigh and legs 5/5 Right side , 5/5 Left side lumber facet Loading Test =positive Right , positive Left Range of motion of the lumbar spine Flexion 30 degrees, extension 10 degrees strait leg raising test = positive at 30 degree bilaterally Fabere test= positive Right , and positive LT . Sever tenderness over the Sacroiliac joint on the Right , and Left sides Gaenslen test= positive right ,and positive left . Seated flexion test= positive right ,a nd positive Left . Multiple trigger point identified in the lumbar paraspinal muscles bilaterally Results CBC & Chem 7: 06/08/20 11:31 06/08/20 11:31 Labs: Abnormal Lab Results - Last 24 Hours (Table) 06/08/20 Range/Units 12:50 Ur Leukocyte Esterase Trace H (Negative) Urine Mucus Moderate H (None) /hpf Comments: Computed tomography scan of the lumbar spine= L4 5 L5-S1 lumbar bulging disc disease, foraminal stenosis, lumbar spondylosis Assessment and Plan Plan: Assessment and plan=1-lumbar radiculopathy. 2-lumbar degenerative disc disease. 3-lumbar spondylosis. 4-bilateral sacroiliitis. 5-myofascial pain syndrome and lumbar paraspinal muscles. Recommend continue current medication. Patient could benefit from lumbar epidural steroid injection at L4 5 or L5-S1, and she could benefit from trigger point injection lumbar paraspinal muscles Time with Patient: Greater than 30 PQRS Measure Charge Sheet PQRS Narrative: Smoking Status Never smoker Blood Pressure [Right Arm] 125/67 Blood Pressure 128/76 Pain Intensity [Left Back] 4 Pain Intensity [None] 0 Pain Intensity 4 Pain Scale Used Numeric (1 - 10) Scale Used Numeric (1 - 10) Home Medications: Ambulatory Orders HYDROcodone/APAP 7.5-325MG [[place] 7.5-325] 1 tab PO ONCE PRN 06/08/20
[2020-06-09 12:15] VITALS: RESP 17
--- NOTE | 2020-06-09 13:02 | P.CNOR ---
History of Present Illness - [facility] Consult date: 06/09/20 Consult reason: low back pain History of present illness: Patient is a very pleasant 29-year-old female seen and examined today at bedside. She has had back pain on and off over the past several years that her pain became worse just last week. She had been doing some work around the house where she was doing repetitive bending and her pain was worse at the end of last week. When she was trying to get the car seat out of the car she lifted and pulled and had severe increase in her pain in her back and toward her left lower extremity. She is admitted in never been that intense in the past. She presented the hospital and was unable to get up and get around. At home she had been crawling on her hands and knees due to her pain and issues. She denies any specific weakness but she is unable to do things due to her pain. She has a positive right lower extremity. Denies any chest pain shortness breath. Review of Systems As stated per HPI. Chest has a history of pain at her lower back on and off for the past several years family left side of her back never problems in her legs. Past Medical History Past Medical History: No Reported History Additional Past Medical History / Comment(s): Low back pain, bulging discs, pt is currently breast feeding. History of Any Multi-Drug Resistant Organisms: None Reported Past Surgical History: No Surgical Hx Reported Additional Past Surgical History / Comment(s): [place] teeth extractions with sedation. Past Anesthesia/Blood Transfusion Reactions: No Reported Reaction Past Psychological History: No Psychological Hx Reported Smoking Status: Never smoker Past Alcohol Use History: Rare Past Drug Use History: None Reported - Past Family History Mother Family Medical History: No Reported History Additional Family Medical History / Comment(s): Mother is healthy Father Family Medical History: Hypertension Medications and Allergies Home Medications Medication Instructions Recorded Confirmed Type HYDROcodone/APAP 7.5-325MG [[place] 1 tab PO ONCE PRN 06/08/20 06/08/20 History 7.5-325] Allergies Allergy/AdvReac Type Severity Reaction Status Date / Time No Known Allergies Allergy Verified 06/08/20 11:18 Physical Examination Osteopathic Statement: *. No significant issues noted on an osteopathic structural exam other than those noted in the History and Physical/Consult. - L Spine: dermatomal strength & reflexes bilateral Strength: hip flexion: 5/5 (She has soreness in her back when she tries to move in and out of bed she has severe spasm and paravertebrals. She is able to lift her legs about that independently. She has not of half-strength/plantar flexion and EHL. Her thighs and calves soft nontender. No hyperreflexia.) Results - Labs Labs: Abnormal Lab Results - Last 24 Hours (Table) 06/08/20 Range/Units 12:50 Ur Leukocyte Esterase Trace H (Negative) Urine Mucus Moderate H (None) /hpf H & H 06/08/20 Range/Units 11:31 Hgb 13.3 (11.4-16.0) gm/dL Hct 41.9 (34.0-46.0) % Result Diagrams: 06/08/20 11:31 06/08/20 11:31 - Diagnostic results CT Scan - lumbar: report reviewed, image reviewed (Computed tomography scan of her lumbar spine is reviewed that shows significant disc herniation and left paracentral herniation with extruded fragment L5-S1. There is some disc degeneration L3 4 L4 5.) Assessment and Plan Assessment: Herniated nucleus pulposus L5-S1 on the left Left lower extremity radiculopathy Acute on chronic low back pain Myofascial strain lumbar spine Paravertebral spasm Plan: The patient has acute exacerbation of some chronic issues at her low back. I think that she has new disc herniation which is causing her significant left lower extremity radiculopathy. She has been treated conservatively in the past and is planning continue with conservative management at this point. Pain management has been consulted and they're planning epidural steroid injection and possible trigger point injections. I think this would be appropriate. It is okay for her to try to mobilize and do light activity to her tolerance. If she is able. She is not having acute neurologic decline but she is a candidate for further intervention in the possibly of laminectomy and discectomy if her symptoms are not responding to conservative management. I discussed this with her. It is okay from a orthopedic spine standpoint for her to be discharged if she stable and pain is adequately controlled. I can see her back in next 1-2 weeks for recheck evaluation and further treatment as necessary. I discussed this with her and answered questions she is agreeable
[2020-06-09] MEDS ORDERED: IV FLUID CONTINUATION 300 ML IV ONE (13:18)
[2020-06-09 13:20] VITALS: BP 126/67; PULSE 89; TEMP 97.6
[2020-06-09] MEDS ORDERED: IOPAMIDOL M200 10 ML VIAL ONE (13:38)
[2020-06-09] MEDS ORDERED: ROPIVACAINE 5MG/ML 20ML VIAL ONE (13:38)
[2020-06-09] MEDS ORDERED: methylPREDNISolone ACETATE 40 MG/ML 1 ML VIAL ONE (13:38)
[2020-06-09] MEDS ORDERED: SODIUM CHLORIDE 0.9% (PF) 10 ML VIAL ONE (13:38)
[2020-06-09] MEDS ORDERED: fentaNYL (PF) 50 MCG/ML 2 ML AMP ONE (13:38)
--- NOTE | 2020-06-09 14:03 | P.PCN ---
Date of Procedure: 06/09/20 Procedure(s) Performed: PREOPERATIVE DIAGNOSIS: 1- Lumbar herniated Disc Diseases 2-Lumbar spondylosis with Facet arthropathy without myelopathy. 3-lumbar radiculopathy. 4-myofascial pain syndrome and lumbar paraspinal muscles. 5-bilateral sacroiliitis POSTOPERATIVE DIAGNOSIS: Same as preop diagnosis. PROCEDURE 1. Lumbar epidural steroid injection under fluoroscopic guidance at the L5-S1 level. (Fluoroscopy imaging was available in radiology department) 2. Lumbar epidurogram. 3. Trigger point injections l, umber paraspinal muscles total of 6 points injected , 3 on the right side lumbar paraspinal muscles and 3 on the left side lumbar paraspinal muscles ANESTHESIA: Local with 1% lidocaine 3 ml and , moderate sedation with intravenous fentanyle 100 Mcg EBL: Minimal PROCEDURE INDICATION: The patient with low back pain and radiculitis symptoms unresponsive to conservative treatment. Fluoroscopy was used to optimize visualization of the needle placement and to maximize safety. PROCEDURE DESCRIPTION / TECHNIQUE: The patient was seen and identified in the preoperative area. Risks, benefits, complications including but not limited to infections ,bleeding ,allergic reaction to the medications ,nerve damage and not complete pain releife , and alternatives were discussed with the patient. The patient agreed to proceed with the procedure and signed the consent. IV was started, and vital signs were stable. Patient was taken to the OR and time out was completed. The patient was placed in the prone position on procedure table and a pillow was placed under the abdomen to reduce lumbar lordosis. The lumbosacral area was prepped and draped in the usual sterile fashion.ere closely monitored during the procedure. Conscious sedation was used during the procedure to decrease patients anxiety. Vital signs was monitered during the entire procedure. Using anterior-posterior fluoroscopy, the L5-S1 interlaminar space was identified and the skin over this site was marked and then infiltrated with 1% lidocaine subcutaneously. Subsequently, a 20-gauge Tuohy epidural needle was inserted and advanced toward the epidural space using the ``Loss of resistance technique and guided by AP and lateral fluoroscopy. The correct needle position in the epidural space was verified with the injection of 2 mL of the water soluble contrast dye Isovue 200 contrast and observing an excellent epidurogram with the epidural spread of the dye, after negative aspiration for blood and CSF and in the absence of paresthesias. Again after negative aspiration, a 6 ml mixture containing 80 mg of Depo-medrol , and 2 ml of preservative free Normal Saline, and 2 ml of preservative free lidocaine 1% solution was injected and a washout of epidurogram was seen. Needle was withdrawn intact, then the trigger point injections on the lumbar paraspinal muscles 3 on the right side lumbar paraspinal muscles and 3 on the left side lumbar paraspinal muscles, each one of them injected with bupivacaine 0.5% 2 mL, using 25-gauge needle, injection done after negative aspiration, and there was no paresthesia during the injection, patient tolerated the procedure well without any complication, injections done sterile technique. COMPLICATIONS: None DISPOSITION / PLANS: The patient was placed in a supine position and transferred to the recovery area in a stable condition for observation. There was no evidence of lower extremity motor or sensory deficit after the procedure. Patient was discharged from the recovery room after meeting discharge criteria. Home discharge instructions were given to the patient by the staff. The patient was reexamined prior to discharge. The patient will schedule a follow up in the clinic in 2-4 weeks.
--- NOTE | 2020-06-09 14:14 | FL ---
EXAMINATION TYPE: FL guided pain mgmt statistic DATE OF EXAM: 06/09/2020 CLINICAL HISTORY: Low back pain. TECHNIQUE: Fluoroscopy. COMPARISON: None. FINDINGS: Fluoroscopic guidance was provided during pain relief procedure performed by Dr. Robles . A total of 2 seconds of fluoroscopic time was utilized during the procedure and single spot image is acquired. Single image acquired shows needle localization at lumbosacral junction. IMPRESSION: As Above.
--- NOTE | 2020-06-09 14:42 | P.DS ---
Providers Date of admission: 06/08/20 11:00 Expected date of discharge: 06/09/20 Attending physician: Joseph Hurtado Consults: 06/08/20 10:45 Consult Physician Routine Consulting Provider: Nora Tatum Consult Reason/Comments: intractable back pain Do you want consulting provider notified?: Yes 06/08/20 21:30 Consult to Anesthesia Routine Consulting Provider: Anesthesia,Services Consult Reason/Comments: HNP L5S1 for possible [place] Primary care physician: Noble Sánchez Hospital Course: Final diagnosis Back pain, secondary to prolapsed disc at L5-S1 level with CT showing some spurring in the area and discontinued on S1 nerve root Radiculopathy secondary to above Tachycardia secondary to pain, improved DVT prophylaxis Discharge disposition Patient is being discharged in a stable condition with guarded prognosis to home. Patient will follow-up with primary care provider upon discharge. Patient will also follow-up with GI Dr. Leonard in the outpatient setting. Total time taken is 35 minutes. History of present illness This is an 29-year-old female who was recently admitted with lower back pain radiating down the left leg and was being closely monitored. Patient was seen by Dr. Tatum along with anesthesia and underwent steroid epidural injection. Patient also underwent trigger point injections with anesthesia. Patient will see Dr. Tatum in the outpatient setting in 1-2 weeks for reevaluation. Patient was also instructed follow-up with her primary care provider upon discharge. Patient is currently breast-feeding and states she is pumping as well and has reserved breastmilk in the freezer. Patient does have [place] as needed and was instructed to continue pumping and dumping the breastmilk and use the reserve until weaning off of the narcotics as it could potentially pass through the breastmilk to the baby. Patient is aware and verbalized understanding. Patient is up and walking to the bathroom and able to ambulate with no difficu lties. She denies any loss of bowel or bladder. She would like to go home today. Currently no reports of chest pain, shortness of breath, or palpitations. Patient is afebrile. No reports of nausea or vomiting and patient is tolerating diet. Patient will be discharged home today. On exam vital signs are stable. Temp is 98.2F, pulse is 85, respirations are 17, blood pressure is 115/68, oxygen saturation is 98% on room air. Cardio S1, S2 are muffled. Respiratory shows diminished breath sounds at the bases with no wheezing or rhonchi noted. Abdomen is soft and nontender. Nervous system shows no focal deficits. Please refer to medication reconciliation sheet for a list of medications. Patient Condition at Discharge: Fair Plan - Discharge Summary Discharge Rx Participant: No New Discharge Prescriptions: Continue HYDROcodone/APAP 7.5-325MG [[place] 7.5-325] 1 tab PO ONCE PRN PRN Reason: Pain Discharge Medication List HYDROcodone/APAP 7.5-325MG [[place] 7.5-325] 1 tab PO ONCE PRN 06/08/20 [History] Follow up Appointment(s)/Referral(s): Noble Sánchez MD [Primary Care Provider] - 06/12/20 11:00 am Nora Tatum DO [Doctor of Osteopathic Medicine] - 07/06/20 8:30 am [facility] [NON-STAFF] - 2 Weeks Patient Instructions/Handouts: Acute Low Back Pain (GEN), Epidural Steroid Injection (DC) Activity/Diet/Wound Care/Special Instructions: Activity Limited until follow-up Follow-up with primary care provider upon discharge Continue current diet Continue to pump breastmilk and waist and use reserve milk while taking narcotics. Follow-up with pain management in the outpatient setting Discharge/Stand Alone Forms: [facility] Instructions Discharge Disposition: HOME SELF-CARE
== END 2020-06-09 17:38 | disposition home or self-care (01) ==
LOC: EC 07:52 → 5NMEDONC 11:00
PROVIDERS: ADMIT Internal Medicine; ATTEND Internal Medicine
DX: Z39.1 Encounter for care and examination of lactating mother (principal); M51.17 Intervertebral disc disorders with radiculopathy, lumbosacral region; M48.07 Spinal stenosis, lumbosacral region; M46.1 Sacroiliitis, not elsewhere classified; M79.18 Myalgia, other site; R00.0 Tachycardia, unspecified; S39.012A Strain of muscle, fascia and tendon of lower back, initial encounter; G89.29 Other chronic pain; E66.9 Obesity, unspecified; Z68.28 Body mass index [BMI] 28.0-28.9, adult; Z98.890 Other specified postprocedural states; Z82.49 Family history of ischemic heart disease and other diseases of the circulatory system; X50.0XXA Overexertion from strenuous movement or load, initial encounter; Y92.810 Car as the place of occurrence of the external cause
CPT/HCPCS: 96376 ×2; 96374; 96375; 99285; 80053; 85025; 81001; 84703; 72132; 20553; 62323; G0378 ×2; J8540 ×2; J1030; J2360; J2930; J2405; J3010; J1885 ×2; J1170; Q9967; Q9966; J2795; 99152

== ENCOUNTER → 2020-08-28 | Outpatient (CLI) | payer BC ==
[2020-08-28 11:14] LABS: Basophils % (A) 1 %; Eosinophils # (A) 0.1 k/uL (0-0.7); Eosinophils % (A) 2 %; HCT 38.9 % (34.0-46.0); HGB 12.5 gm/dL (11.4-16.0); Lymphocytes # (A) 1.5 k/uL (1.0-4.8); Lymphocytes % (A) 40 %; MCH 29.8 pg (25.0-35.0); MCHC 32.2 g/dL (31.0-37.0); MCV 92.4 fL (80.0-100.0); Mean Platelet Volume 7.6; Monocytes # (A) 0.2 k/uL (0-1.0); Monocytes % (A) 5 %; Neutrophils # (A) 1.9 k/uL (1.3-7.7); Neutrophils % (A) 50 %; Platelet Count 279 k/uL (150-450); RBC 4.21 m/uL (3.80-5.40); WBC 3.8 k/uL (3.8-10.6)
[2020-08-28 11:22] LABS: Appearance,Urine Cloudy (Clear); Bacteria,Urine Occasional /hpf; Bilirubin,Urine Negative (Negative); Blood,Urine Trace (Negative); Color,Urine Light Yellow; Glucose,Urine (UA) Negative (Negative); Ketones,Urine Negative (Negative); Leukocyte Esterase,Urine Large (Negative); Mucus,Urine Few /hpf; Nitrite,Urine Negative (Negative); PH, Urine 5.5 (5.0-8.0); Protein,Urine Negative (Negative); RBC,Urine 1 /hpf (0-5); Specific Gravity,Urine 1.012 (1.001-1.035); Squamous Epithelial Cell,Urine 7 /hpf (0-4); Urobilinogen,Urine <2.0 mg/dL (<2.0); WBC,Urine 12 /hpf (0-5)
[2020-08-28 12:15] LABS: Partial Thromboplastin Time 26.3 sec (22.0-30.0); Prothrombin Time 10.3 sec (9.0-12.0)
[2020-08-28 20:31] LABS: African American GFR (CKD) 135.7 (60.0-200.0); Albumin 4.6 g/dL (3.80-4.90); Albumin/Globulin Ratio 1.77 (1.60-3.17); Anion Gap 8.7 mmol/L (4.00-12.00); BUN/Creat Ratio 15.71 Ratio (12.00-20.00); Carbon Dioxide 26.3 mmol/L (21.6-31.8); Globulin 2.6 g/dL (1.6-3.3); Non-African American GFR(CKD) 117.1 (60.0-200.0); Potassium 4.5 mmol/L (3.5-5.5); Total Bilirubin 0.2 mg/dL (0.2-1.2); Total Protein 7.2 g/dL (6.2-8.2)
== END | disposition home or self-care (01) ==
LOC: LABWHC1 10:11
PROVIDERS: ATTEND Specialist
DX: M51.16 Intervertebral disc disorders with radiculopathy, lumbar region (principal); M51.26 Other intervertebral disc displacement, lumbar region
CPT/HCPCS: 36415; 80053; 81001; 85025; 85610; 85730; 87070; 87086

== ENCOUNTER → 2021-02-10 | Outpatient (CLI) | payer BC ==
[2021-02-10 15:47] LABS: Basophils # (A) 0.04 X 10*3/uL (0.00-0.10); Basophils % (A) 0.6 %; Eosinophils # (A) 0.08 X 10*3/uL (0.04-0.35); Eosinophils % (A) 1.3 %; HCT 39.3 % (37.2-46.3); HGB 12.4 g/dL (12.0-15.0); Lymphocytes # (A) 2.03 X 10*3/uL (0.90-5.00); MCH 29.4 pg (27.0-32.0); MCHC 31.6 g/dL (32.0-37.0); MCV 93.1 fL (80.0-97.0); Mean Platelet Volume 11.1 fL (9.5-12.2); Monocytes # (A) 0.34 X 10*3/uL (0.20-1.00); Monocytes % (A) 5.5 %; Neutrophils # (A) 3.66 X 10*3/uL (1.80-7.70); Neutrophils % (A) 59.4 %; Platelet Count 262 X 10*3/uL (140-440); RBC 4.22 X 10*6/uL (4.10-5.20); RDW 15.3 % (11.5-14.5); WBC 6.16 X 10*3/uL (4.50-10.00)
[2021-02-10 18:32] LABS: Hemoglobin A1C 5.5 % (4.0-6.0)
[2021-02-10 22:32] LABS: African American GFR (CKD) 141.8 (60.0-200.0); Albumin 4.7 g/dL (3.80-4.90); Albumin/Globulin Ratio 1.88 (1.60-3.17); Anion Gap 11.3 mmol/L (4.00-12.00); BUN/Creat Ratio 23.33 Ratio (12.00-20.00); Calcium 9.2 mg/dL (8.7-10.3); Carbon Dioxide 20.7 mmol/L (21.6-31.8); Chol/HDL Ratio 3.98; Globulin 2.5 g/dL (1.6-3.3); LDL Cholesterol,Calculated 164.6 mg/dL (0.0-131.0); Non-African American GFR(CKD) 122.3 (60.0-200.0); Potassium 4.2 mmol/L (3.5-5.5); Total Bilirubin 0.4 mg/dL (0.2-1.2); Total Protein 7.2 g/dL (6.2-8.2); VLDL Calculation 17.4 mg/dL (5.00-40.00)
== END | disposition home or self-care (01) ==
LOC: LABWHC1 08:45
PROVIDERS: ATTEND Family Medicine
DX: Z00.00 Encounter for general adult medical examination without abnormal findings (principal)
CPT/HCPCS: 36415; 80053; 80061; 83036; 84443; 85025

== ENCOUNTER 2021-05-22 11:39 | Emergency (ER) | payer BC ==
[2021-05-22 11:47] VITALS: RESP 18; TEMP 99.2
[2021-05-22] MEDS ORDERED: SODIUM CHLORIDE 0.9% 1,000 ML IV ONE (12:16)
[2021-05-22 12:48] LABS: Basophils # (A) 0.1 k/uL (0-0.2); Basophils % (A) 1 %; Eosinophils # (A) 0.1 k/uL (0-0.7); Eosinophils % (A) 1 %; HCT 40.1 % (34.0-46.0); HGB 13.2 gm/dL (11.4-16.0); Lymphocytes # (A) 1.4 k/uL (1.0-4.8); Lymphocytes % (A) 14 %; MCH 31.6 pg (25.0-35.0); MCHC 32.8 g/dL (31.0-37.0); MCV 96.4 fL (80.0-100.0); Monocytes # (A) 0.3 k/uL (0-1.0); Monocytes % (A) 3 %; Neutrophils # (A) 8.3 k/uL (1.3-7.7); Neutrophils % (A) 81 %; Platelet Count 292 k/uL (150-450); RBC 4.16 m/uL (3.80-5.40); RDW 13.3 % (11.5-15.5); WBC 10.3 k/uL (3.8-10.6)
[2021-05-22 12:56] LABS: ALT 10 U/L (4-34); AST 20 U/L (14-36); African American GFR (CKD) >90 (>60 ml/min/1.73 sqM); Albumin 4.3 g/dL (3.5-5.0); Alkaline Phosphatase 85 U/L (38-126); Anion Gap 10 mmol/L; Blood Urea Nitrogen 7 mg/dL (7-17); Calcium 9.3 mg/dL (8.4-10.2); Carbon Dioxide 21 mmol/L (22-30); Chloride 106 mmol/L (98-107); Glucose 113 mg/dL (74-99); Non-African American GFR(CKD) >90 (>60 ml/min/1.73 sqM); Potassium 3.8 mmol/L (3.5-5.1); Sodium 137 mmol/L (137-145); Total Bilirubin 0.1 mg/dL (0.2-1.3); Total Protein 7.2 g/dL (6.3-8.2)
--- NOTE | 2021-05-22 13:05 | ED ---
General Adult HPI - General Chief complaint: Vaginal Bleeding Stated complaint: 8 weeks & vaginal bleeding Time Seen by Provider: 05/22/21 11:55 Source: patient Mode of arrival: ambulatory Limitations: no limitations - History of Present Illness Initial comments: 30-year-old female currently approximately 8 weeks presents to the emergency room for a chief complaint of vaginal bleeding. Patient reports she developed some vaginal bleeding over the past couple days. States it was light and just tinged pink. She will take doctor who stated if it gets heavier returns read to come to the emergency room. Patient states this morning it did start to turn red and she did pass a couple clots. She states she has had slight cramping. She does have a history of one miscarriage in the past. Patient denies lightheadedness dizziness or chest pain.patient did have a normal ultrasound with an intrauterine and a heart rate about [address] Brantley. Patient has no other complaints at this time including shortness of breath, chest pain, abdominal pain, nausea or vomiting, headache, or visual changes. - Related Data Home Medications Medication Instructions Recorded Confirmed Acetaminophen/Caffeine [Excedrin 2 tab PO DAILY PRN 05/22/21 05/22/21 Tension Headache] Chc-Sijm-Lebld Acid 1 cap PO AC-LUNCH 05/22/21 05/22/21 [-U Capsule (formulary)] valACYclovir HCL [Valtrex] 1,000 mg PO AC-LUNCH 05/22/21 05/22/21 Allergies Allergy/AdvReac Type Severity Reaction Status Date / Time No Known Allergies Allergy Verified 05/22/21 13:00 Review of Systems ROS Statement: Those systems with pertinent positive or pertinent negative responses have been documented in the HPI. ROS Other: All systems not noted in ROS Statement are negative. Past Medical History Past Medical History: No Reported History Additional Past Medical History / Comment(s): Low back pain, bulging discs, pt is currently breast feeding. History of Any Multi-Drug Resistant Organisms: None Reported Past Surgical History: No Surgical Hx Reported Additional Past Surgical History / Comment(s): [place] teeth extractions with sedation. Past Anesthesia/Blood Transfusion Reactions: No Reported Reaction Past Psychological History: No Psychological Hx Reported Smoking Status: Never smoker Past Alcohol Use History: Rare Past Drug Use History: None Reported - Past Family History Mother Family Medical History: No Reported History Additional Family Medical History / Comment(s): Mother is healthy Father Family Medical History: Hypertension General Exam Limitations: no limitations General appearance: alert, in no apparent distress Head exam: Present: atraumatic, normocephalic, normal inspection Eye exam: Present: normal appearance, PERRL, EOMI. Absent: scleral icterus, conjunctival injection, periorbital swelling ENT exam: Present: normal exam, mucous membranes moist Neck exam: Present: normal inspection, full ROM. Absent: tenderness, meningismus, lymphadenopathy Respiratory exam: Present: normal lung sounds bilaterally. Absent: respiratory distress, wheezes, rales, rhonchi, stridor Cardiovascular Exam: Present: regular rate, normal rhythm, normal heart sounds. Absent: systolic murmur, diastolic murmur, rubs, gallop, clicks GI/Abdominal exam: Present: soft, normal bowel sounds. Absent: distended, tenderness, guarding, rebound, rigid External exam: Present: normal external exam. Absent: erythema, swelling, lesions, lacerations, ecchymosis Speculum exam: Present: vaginal bleeding (mild vaginal bleeding noted with clot, no tissue). Absent: normal speculum exam, erythema, vaginal discharge, c ervical discharge, tissue, laceration Neurological exam: Present: alert Course Vital Signs 05/22/21 05/22/21 11:45 14:09 Temperature 99.2 F Pulse Rate 85 96 Respiratory 18 18 Rate Blood Pressure 133/81 137/83 O2 Sat by Pulse 100 100 Oximetry Medical Decision Making - Medical Decision Making Vitals are stable. Patient is well-appearing. Physical exam revealed a nontender abdomen however patient does have mild vaginal bleeding on pelvic exam. CBC is unremarkable. Hemoglobin is 13.2. CMP is unremarkable. Urinalysis shows 2+ ketones, patient was given a liter of fluid. She does have 182 red blood cells in the urine likely from vaginal bleeding. 42 white blood cells are likely reactive, there is no bacteria in the urine. Reflex order for urine culture. Patient is AB+ blood type. Ultrasound today showed no intrauterine gestation identified, correlate for spontaneous . This is clinically correlated given patient did have an IUP with heart tones a week and a half ago. At this time patient is stable for outpatient follow-up with her [facility] with whom she has established care. However I did discuss pelvic rest and monitoring for worsening bleeding. If bleeding worsens significantly and she is soaking through a pad an hour or becomes lightheaded she will need to return to the emergency room. - Lab Data Result diagrams: 05/22/21 12:27 05/22/21 12:27 Lab Results 05/22/21 05/22/21 05/22/21 Range/Units 12:27 12:27 12:27 WBC 10.3 (3.8-10.6) k/uL RBC 4.16 (3.80-5.40) m/uL Hgb 13.2 (11.4-16.0) gm/dL Hct 40.1 (34.0-46.0) % MCV 96.4 (80.0-100.0) fL MCH 31.6 (25.0-35.0) pg MCHC 32.8 (31.0-37.0) g/dL RDW 13.3 (11.5-15.5) % Plt Count 292 (150-450) k/uL MPV 8.0 Neutrophils % 81 % Lymphocytes % 14 % Monocytes % 3 % Eosinophils % 1 % Basophils % 1 % Neutrophils # 8.3 H (1.3-7.7) k/uL Lymphocytes # 1.4 (1.0-4.8) k/uL Monocytes # 0.3 (0-1.0) k/uL Eosinophils # 0.1 (0-0.7) k/uL Basophils # 0.1 (0-0.2) k/uL Sodium 137 (137-145) mmol/L Potassium 3.8 (3.5-5.1) mmol/L Chloride 106 (98-107) mmol/L Carbon Dioxide 21 L (22-30) mmol/L Anion Gap 10 mmol/L BUN 7 (7-17) mg/dL Creatinine 0.55 (0.52-1.04) mg/dL Est GFR (CKD-EPI)AfAm >90 (>60 ml/min/1.73 sqM) Est GFR (CKD-EPI)NonAf >90 (>60 ml/min/1.73 sqM) Glucose 113 H (74-99) mg/dL Calcium 9.3 (8.4-10.2) mg/dL Total Bilirubin 0.1 L (0.2-1.3) mg/dL AST 20 (14-36) U/L ALT 10 (4-34) U/L Alkaline Phosphatase 85 (38-126) U/L Total Protein 7.2 (6.3-8.2) g/dL Albumin 4.3 (3.5-5.0) g/dL HCG, Quant 647.2 mIU/mL Urine Color Urine Appearance (Clear) Urine pH (5.0-8.0) Ur Specific [place] (1.001-1.035) Urine Protein (Negative) Urine Glucose (UA) (Negative) Urine Ketones (Negative) Urine Blood (Negative) Urine Nitrite (Negative) Urine Bilirubin (Negative) Urine Urobilinogen (<2.0) mg/dL Ur Leukocyte Esterase (Negative) Urine RBC (0-5) /hpf Urine WBC (0-5) /hpf Urine Mucus (None) /hpf Blood Type AB Positive Blood Type Recheck AB Pos Bld Type Recheck Status No 05/22/21 Range/Units 12:31 WBC (3.8-10.6) k/uL RBC (3.80-5.40) m/uL Hgb (11.4-16.0) gm/dL Hct (34.0-46.0) % MCV (80.0-100.0) fL MCH (25.0-35.0) pg MCHC (31.0-37.0) g/dL RDW (11.5-15.5) % Plt Count (150-450) k/uL MPV Neutrophils % % Lymphocytes % % Monocytes % % Eosinophils % % Basophils % % Neutrophils # (1.3-7.7) k/uL Lymphocytes # (1.0-4.8) k/uL Monocytes # (0-1.0) k/uL Eosinophils # (0-0.7) k/uL Basophils # (0-0.2) k/uL Sodium (137-145) mmol/L Potassium (3.5-5.1) mmol/L Chloride (98-107) mmol/L Carbon Dioxide (22-30) mmol/L Anion Gap mmol/L BUN (7-17) mg/dL Creatinine (0.52-1.04) mg/dL Est GFR (CKD-EPI)AfAm (>60 ml/min/1.73 sqM) Est GFR (CKD-EPI)NonAf (>60 ml/min/1.73 sqM) Glucose (74-99) mg/dL Calcium (8.4-10.2) mg/dL Total Bilirubin (0.2-1.3) mg/dL AST (14-36) U/L ALT (4-34) U/L Alkaline Phosphatase (38-126) U/L Total Protein (6.3-8.2) g/dL Albumin (3.5-5.0) g/dL HCG, Quant mIU/mL Urine Color Light Red Urine Appearance Clear (Clear) Urine pH 6.0 (5.0-8.0) Ur Specific [place] 1.027 (1.001-1.035) Urine Protein 1+ H (Negative) Urine Glucose (UA) Negative (Negative) Urine Ketones 2+ H (Negative) Urine Blood Large H (Negative) Urine Nitrite Negative (Negative) Urine Bilirubin Negative (Negative) Urine Urobilinogen <2.0 (<2.0) mg/dL Ur Leukocyte Esterase Large H (Negative) Urine RBC >182 H (0-5) /hpf Urine WBC 42 H (0-5) /hpf Urine Mucus Many H (None) /hpf Blood Type Blood Type Recheck Bld Type Recheck Status Disposition Clinical Impression: Vaginal bleeding, Miscarriage Disposition: HOME SELF-CARE Condition: Good Instructions (If sedation given, give patient instructions): Miscarriage (ED) Additional Instructions: please repeat urine hCG on Monday. Follow-up with your [facility] on Monday. Practice pelvic rest until that time. If bleeding worsens or you become lighthe aded you must return to the emergency room. Is patient prescribed a controlled substance at d/c from ED?: No Referrals: Paresh Dominguez MD [Primary Care Provider] - 1-2 days Time of Disposition: 14:25
[2021-05-22 13:12] LABS: HCG,Quantitative Serum 647.2 mIU/mL
[2021-05-22 13:17] LABS: Appearance,Urine Clear (Clear); Bilirubin,Urine Negative (Negative); Blood,Urine Large (Negative); Color,Urine Light Red; Glucose,Urine (UA) Negative (Negative); Ketones,Urine 2+ (Negative); Leukocyte Esterase,Urine Large (Negative); Mucus,Urine Many /hpf; Nitrite,Urine Negative (Negative); Protein,Urine 1+ (Negative); RBC,Urine >182 /hpf (0-5); Specific Gravity,Urine 1.027 (1.001-1.035); Urobilinogen,Urine <2.0 mg/dL (<2.0); WBC,Urine 42 /hpf (0-5)
--- NOTE | 2021-05-22 13:31 | US ---
EXAMINATION TYPE: Transabdominal DATE OF EXAM: 05/22/2021 1:11 PM COMPARISON: NONE CLINICAL HISTORY: pain. spotting last week turned into heavy bleeding and passing clots today, US at office last week showed normal 8wk fetus, A1 EXAM PERFORMED: OBTA EXAM MEASUREMENTS: GESTATIONAL AGE / DATING Physician Established: (8 weeks/6 days) EDC: 12/26/2021 Dates by LMP: LMP unknown Dates by First Scan: No previous this is first scan Dates by Current Scan for: No IUP seen at this time MATERNAL ANATOMY Uterus: 9.0 x 6.3 x 4.2cm Right Ovary: 3.8 x 2.5 x 2.3cm Left Ovary: not seen due to bowel gas Post CDS / Adnexa: wnl Presence of free fluid: no Presence of corpus luteal cyst: possible right ovary = 2.4cm Presence of subchorionic bleed: no GESTATION / SURVEY Endometrium = 1.4cm, looks thickener near lower uterine segment which may represent clot IUP: No IUP seen at this time Date of LMP: unknown Beta HcG (if available): 647.2 Urinary bladder is sonolucent. IMPRESSION: 1. No intrauterine gestation identified at this time. Correlate for spontaneous .
[2021-05-22 14:10] VITALS: BP 137/83; PULSE 96
== END 2021-05-22 14:34 | disposition home or self-care (01) ==
LOC: EC 11:39
DX: O03.9 Complete or unspecified spontaneous abortion without complication (principal)
CPT/HCPCS: 36415; 76801; 80053; 81001; 84702; 85025; 86900; 86901; 87086; 96360; 99284

== ENCOUNTER → 2021-05-24 | Outpatient (CLI) | payer BC | END | disposition home or self-care (01) | LOC: LABWHC1 09:19 | PROVIDERS: ATTEND Physician Assistant Medical | DX: O03.9 Complete or unspecified spontaneous abortion without complication (principal) | CPT/HCPCS: 36415; 84702 ==

== ENCOUNTER → 2021-05-31 | Outpatient (CLI) | payer BC | END | disposition home or self-care (01) | LOC: LABWHC1 09:03 | PROVIDERS: ATTEND Obstetrics & Gynecology Obstetrics | DX: O02.1 Missed abortion (principal) | CPT/HCPCS: 36415; 84702 ==

== ENCOUNTER 2022-03-21 16:16 | Inpatient (IN) | payer BC ==
[2022-03-21] MEDS ORDERED: LIDOCAINE 0.5% (PF) 5 MG/ML (50 ML SDV) SQ PRN (16:47)
[2022-03-21] MEDS ORDERED: OXYTOCIN 10 UNIT/ML 1 ML VIAL IM PRN (16:47)
[2022-03-21] MEDS ORDERED: TERBUTALINE 1 MG/ML VIAL SQ PRN (16:47)
[2022-03-21] MEDS ORDERED: CARBOPROST TROMETHAMINE 250 MCG/ML 1 ML AMP IM PRN (16:47)
[2022-03-21] MEDS ORDERED: AMPICILLIN 2,000 MG in SODIUM CHLORIDE 0.9% 100 ML IVPB STA (16:47)
[2022-03-21] MEDS ORDERED: METHYLERGONOVINE 0.2 MG/ML 1 ML AMP IM PRN (16:47)
[2022-03-21] MEDS: LACTATED RINGERS 1,000 ML IV SCH ×3 (17:11→22:35)
[2022-03-21 17:28] LABS: Basophils # (A) 0.1 k/uL (0-0.2); Basophils % (A) 0 %; Eosinophils % (A) 0 %; HCT 34.5 % (34.0-46.0); Hypochromasia Slight; Lymphocytes % (A) 18 %; MCH 28.1 pg (25.0-35.0); MCHC 31.7 g/dL (31.0-37.0); MCV 88.5 fL (80.0-100.0); Mean Platelet Volume 9.6; Monocytes # (A) 0.4 k/uL (0-1.0); Monocytes % (A) 3 %; Neutrophils # (A) 8.4 k/uL (1.3-7.7); Neutrophils % (A) 76 %; Platelet Count 261 k/uL (150-450); RDW 13.3 % (11.5-15.5)
[2022-03-21] MEDS ORDERED: OXYTOCIN 30 UNITS/500 ML NS 30 UNIT in SALINE 1 500ML.BAG IV SCH ×2 (18:30→23:45)
[2022-03-21] MEDS ORDERED: ACETAMINOPHEN IV (For NPO) 1,000 MG in EMPTY BAG 1 BAG IVPB STA (18:46)
[2022-03-21] MEDS ORDERED: ROPIVACAINE 5MG/ML 20ML VIAL ONE (21:32)
[2022-03-21] MEDS ORDERED: SODIUM CHLORIDE 0.9% 100 ML BAG ONE (21:32)
[2022-03-21] MEDS ORDERED: fentaNYL (PF) 50 MCG/ML 5 ML AMP ONE (21:32)
[2022-03-21] MEDS: AMPICILLIN 1,000 MG in SODIUM CHLORIDE 0.9% 50 ML IVPB SCH (21:49)
--- NOTE | 2022-03-21 23:46 | P.HPOB ---
History of Present Illness H&P Date: 03/21/22 Chief Complaint: IUP @ 36 5/7 weeks, vaginal bleeding, CTX This is a 31-year-old at 38-5/7 weeks that presents to labor and delivery complaints of irregular contractions. Patient was placed on the monitor and category 1 heart tones are noted, patient is gemma every 4-5 minutes. Patient initially went to the bathroom and had a large gush of vaginal bleeding in the toilet. She continues to have bright red bleeding. Patient has been receiving routine care which has been essentially uncomplicated. Patient notes good movement. On bloodwork this patient. Of AB+, rubella status immune, B surface engine negative, RPR nonreactive, HIV negative, group beta strep culture was positive. Review of Systems Constitutional: Denies chills, Denies fatigue, Denies fever Ears, nose, mouth and throat: Denies headache Cardiovascular: Reports leg edema Respiratory: Denies dyspnea Gastrointestinal: Denies nausea, Denies vomiting Genitourinary: Reports Past Medical History Past Medical History: No Reported History Additional Past Medical History / Comment(s): Low back pain, bulging discs, pt is currently breast feeding. History of Any Multi-Drug Resistant Organisms: None Reported Past Surgical History: No Surgical Hx Reported Additional Past Surgical History / Comment(s): [place] teeth extractions with sedation. Past Anesthesia/Blood Transfusion Reactions: No Reported Reaction Smoking Status: Never smoker - Past Family History Mother Family Medical History: No Reported History Additional Family Medical History / Comment(s): Mother is healthy Father Family Medical History: Hypertension Medications and Allergies Home Medications Medication Instructions Recorded Confirmed Type Uoa-Ogww-Qxzod Acid 1 cap PO AC-LUNCH 05/22/21 03/21/22 History [-U Capsule (formulary)] valACYclovir HCL [Valtrex] 1,000 mg PO AC-LUNCH 05/22/21 03/21/22 History Aspirin [[place] Aspirin EC] 81 mg PO DAILY 03/21/22 03/21/22 History Omeprazole 20 mg PO DAILY 03/21/22 03/21/22 History Allergies Allergy/AdvReac Type Severity Reaction Status Date / Time No Known Allergies Allergy Verified 03/21/22 16:26 Exam Osteopathic Statement: *. No significant issues noted on an osteopathic structural exam other than those noted in the History and Physical/Consult. Intake and Output 03/21/22 03/21/22 03/21/22 06:59 14:59 22:59 Other: Weight 98.43 kg Targeted physical exam is performed and state in general well-nourished well- developed female in no acute distress, breathing is noted to nonlabored, heart has a regular rate and rhythm, abdomen is gravid and appropr iate for gestational age, on cervical exam she is 4/80/-2 station a bulging bag of fluid is appreciated, amniotomy is performed and clear fluid was obtained. Towel on the perineum had bright red bleeding noted, on exam nothing activities appreciated. heart tones returned be category 1 and she is gemma every 3 minutes. Results Result Diagrams: 03/21/22 17:03 Assessment and Plan (1) Term Current Visit: Yes Status: Acute Code(s): Z34.90 - ENCNTR FOR SUPRVSN OF NORMAL , UNSP, UNSP TRIMESTER SNOMED Code(s): 10253585 (2) Positive GBS test Current Visit: Yes Status: Acute Code(s): B95.1 - STREPTOCOCCUS, GROUP B, CAUSING DISEASES CLASSD ELSWHR SNOMED Code(s): 597096597 (3) Vaginal bleeding Current Visit: Yes Status: Acute Code(s): N93.9 - ABNORMAL UTERINE AND VAGINAL BLEEDING, UNSPECIFIED SNOMED Code(s): 245017798 Plan: 31 yo at 38 5/7 weeks that presents to labor and delivery with complaints of irregular contractions and spotting. Patient had a large gush of vaginal bleeding once on labor and delivery. Patient is admitted to labor and delivery amniotomy was performed and clear fluid was obtained. Patient declines epidural. Will await spontaneous vaginal delivery as she had a precipitous de livery previously.
[2022-03-21] MEDS ORDERED: LANOLIN CREAM 5 GM TUBE TOPICAL PRN (23:49)
[2022-03-21] MEDS ORDERED: SIMETHICONE 80 MG CHEWABLE PO PRN (23:49)
[2022-03-21] MEDS ORDERED: HYDROCORTISONE 2.5% RECTAL CREAM 30 GM TUBE RECTAL PRN (23:49)
[2022-03-21] MEDS ORDERED: ZOLPIDEM 5 MG TAB PO PRN (23:49)
[2022-03-21] MEDS ORDERED: diphenhydrAMINE 25 MG CAP PO PRN (23:49)
[2022-03-21] MEDS ORDERED: diphenhydrAMINE 50 MG/ML 1 ML VIAL IVP PRN ×2 (23:49)
[2022-03-21] MEDS ORDERED: diphenhydrAMINE 50 MG CAP PO PRN (23:49)
--- NOTE | 2022-03-21 23:49 | P.PROBDLV ---
Vaginal Delivery Note - . Vaginal Delivery Note: This is a 31-year-old at 38-6/7 weeks that presents to labor and delivery with complaints of cramping and vaginal bleeding. Patient was noted have a gush of vaginal bleeding along with passage of a clot. Patient was noted to be 4 cm upon presentation. heart tones were noted to be category 1 on admission. Patient was admitted to labor and delivery amniotomy was performed clear fluid was obtained. Patient progressed through labor making minimal change category 1 heart tones continued a few additional episodes of vaginal bleeding not consistent with bloody show were appreciated. Pitocin augmentation of labor was begun. Patient did become uncomfortable and requested epidural placement. Epidural was placed without difficulty by anesthesia. Patient then progressed to complete was placed in a modified lithotomy position and with excellent maternal effort brought the baby down to presentation. With additional pushing the head along with the anterior/posterior shoulder were delivered a loose nuchal/body cord was delivered through. A spontaneous cry was noted at . After two-minute delayed the umbilical cord was doubly clamped and cut and the was handed to the maternal abdomen. The placenta was then deli yarelis spontaneously intact with three-vessel cord being noted. The bladder was then drained for 200 mL of clear yellow urine. Uterus is noted to be firm and below the umbilicus. On inspection the patient's vaginal vault a secondary midline laceration along with a right labial laceration were appreciated. Laceration sites were instilled with lidocaine and repaired in the usual fashion with 3-0 Rapide and 4-0 chromic. Hemostasis was appreciated after repair of the lacerations. Rectal exam was performed and found to be normal in nature. All counts are noted to be correct 2 of them delivery. Patient and tolerated delivery well. Weight is pending as infant remains on the maternal abdomen.
[2022-03-22] MEDS: IBUPROFEN 600 MG TAB PO SCH ×4 (00:55→20:19)
[2022-03-22] MEDS: AMPICILLIN 1,000 MG in SODIUM CHLORIDE 0.9% 50 ML IVPB SCH (03:23)
[2022-03-22] MEDS: ACETAMINOPHEN TAB 325 MG TAB PO PRN ×3 (05:10→17:50)
[2022-03-22] MEDS: SENNOSIDES-DOCUSATE SODIUM 1 EACH TAB PO SCH ×2 (08:23→20:19)
--- NOTE | 2022-03-22 10:08 | P.PN ---
Subjective Progress Note Date: 03/22/22 Principal diagnosis: Doing well day #1 Slept well. Declining circumcision this morning. Pain well managed. No complaints Objective - Vital Signs Vital signs: Vital Signs Temp 98.0 F 03/22/22 08:00 Pulse 103 H 03/22/22 08:00 Resp 18 03/22/22 08:00 BP 126/83 03/22/22 08:00 Pulse Ox 97 03/22/22 08:00 FiO2 Intake & Output 03/21/22 03/22/22 03/22/22 18:59 06:59 18:59 Output Total 655 Balance -655 Weight 98.43 kg Output: Urine 200 Estimated Blood Loss 150 Output, Quantitative 305 Blood Loss Other: Voiding Method Toilet # Voids 1 1 - Constitutional General appearance: Present: average body habitus, cooperative - EENT Eyes: Present: PERRLA ENT: Present: hearing grossly normal - Respiratory Respiratory: bilateral: CTA - Cardiovascular Rhythm: regular - Gastrointestinal General gastrointestinal: Present: normal bowel sounds - Genitourinary Genitourinary Comment(s): Fundus firm, midline, symmetric, 18 week size. Perineal body clean and dry. - Integumentary Integumentary: Present: normal - Neurologic Neurologic: Present: CNII-XII intact - Musculoskeletal Musculoskeletal: Present: gait normal, strength equal bilaterally - Psychiatric Psychiatric: Present: A&O x's 3, appropriate affect, intact judgment & insight - Labs CBC & Chem 7: 03/21/22 17:03 Labs: Abnormal Lab Results - Last 24 Hours (Table) 03/21/22 Range/Units 17:03 WBC 11.0 H (3.8-10.6) k/uL Hgb 11.0 L (11.4-16.0) gm/dL Neutrophils # 8.4 H (1.3-7.7) k/uL Assessment and Plan Assessment: Doing well day #1 Plan: Continue care. Likely circumcision and discharge home tomorrow. Time with Patient: Less than 30
[2022-03-22] MEDS ORDERED: PRENATAL VIT-IRON-FOLIC ACID 1 EACH TABLET PO SCH (12:30)
[2022-03-23 00:15] VITALS: RESP 16
[2022-03-23] MEDS: ACETAMINOPHEN TAB 325 MG TAB PO PRN ×2 (00:15→08:03)
[2022-03-23] MEDS: IBUPROFEN 600 MG TAB PO SCH ×2 (04:25→08:41)
[2022-03-23] MEDS: SENNOSIDES-DOCUSATE SODIUM 1 EACH TAB PO SCH (08:03)
[2022-03-23 08:41] VITALS: BP 130/79; PULSE 91; TEMP 98.3
--- NOTE | 2022-03-23 13:18 | P.DS ---
Providers Date of admission: 03/21/22 16:55 Expected date of discharge: 03/23/22 Attending physician: Eugenia Brantley Primary care physician: Stated None - Discharge Diagnosis(es) (1) Term Status: Acute (2) Positive GBS test Status: Acute (3) Vaginal bleeding Status: Acute Hospital Course: This is a 31 yo at 385/7 weeks that presented to the hospital with complaints of cramping and spotting. while she was in triage she had a "gush of blood and passage of a clot, in the bathroom. she was noted to be 4 cm dilated with contractions noted q 4mins. she has been receiving routine care complicated [facility], and a known HSV history. all testing has been normal. she was admitted to labor and delivery, amniotomy was preformed and clear fluid was obtained. she made minimal and pitocing augmentation of labor was begun. She did become uncomfortable and and epidural was requested and placed by anesthesia. she progressed to complete and began pushing, she had a normal spontaneous vaginal delivery of a viable male 7-4 apgars of 8-9 at one and five minutes respectively. she has done well . she is feeling well, lochia is minimal. she is breast feeding without difficulty. she states pain is well controlled and she would like discharge home. Patient Condition at Discharge: Good Plan - Discharge Summary New Discharge Prescriptions: No Action [id number]-Dstxf Acid [-U Capsule (formulary)] 1 cap PO AC- LUNCH Omeprazole 20 mg PO DAILY Aspirin [[place] Aspirin EC] 81 mg PO DAILY valACYclovir HCL [Valtrex] 1,000 mg PO AC-LUNCH Discharge Medication List [id number] Acid [-U Capsule (formulary)] 1 cap PO AC-LUNCH 05/22/21 [History] valACYclovir HCL [Valtrex] 1,000 mg PO AC-LUNCH 05/22/21 [History] Aspirin [[place] Aspirin EC] 81 mg PO DAILY 03/21/22 [History] Omeprazole 20 mg PO DAILY 03/21/22 [History] Follow up Appointment(s)/Referral(s): Eugenia Brantley DO [Doctor of Osteopathic Medicine] - 4 Weeks Patient Instructions/Handouts: Vaginal Delivery (GEN), Vaginal Delivery (DC) Discharge Disposition: HOME SELF-CARE
== END 2022-03-23 11:25 | disposition home or self-care (01) | DRG 806 ==
LOC: FBPOP 16:16 → 4FBP 16:55
PROVIDERS: ADMIT Obstetrics & Gynecology Obstetrics; ATTEND Obstetrics & Gynecology Obstetrics
PROC: 10E0XZZ Delivery of Products of Conception, External Approach (ICD-10-PCS; principal; 2022-03-21)
PROC: 0HQ9XZZ Repair Perineum Skin, External Approach (ICD-10-PCS; 2022-03-21)
PROC: 4A0HXCZ Measurement of Products of Conception, Cardiac Rate, External Approach (ICD-10-PCS; 2022-03-21)
PROC: 10907ZC Drainage of Amniotic Fluid, Therapeutic from Products of Conception, Via Natural or Artificial Opening (ICD-10-PCS; 2022-03-21)
PROC: 3E033VJ Introduction of Other Hormone into Peripheral Vein, Percutaneous Approach (ICD-10-PCS; 2022-03-21)
DX: O99.824 Streptococcus B carrier state complicating childbirth (principal); O98.32 Other infections with a predominantly sexual mode of transmission complicating childbirth; Z37.0 Single live birth; O69.81X0 Labor and delivery complicated by cord around neck, without compression, not applicable or unspecified; A60.09 Herpesviral infection of other urogenital tract; O70.0 First degree perineal laceration during delivery; Z3A.38 38 weeks gestation of pregnancy; Z79.82 Long term (current) use of aspirin; Z86.16 Personal history of COVID-19
CPT/HCPCS: 59025; 85025; 86850; 86900; 86901; 88307; 99213

== ENCOUNTER 2023-06-30 17:05 | Emergency (ER) | payer BC ==
[2023-06-30 17:44] VITALS: TEMP 98.4
--- NOTE | 2023-06-30 20:12 | ED ---
General Adult HPI - General Chief complaint: Abdominal Pain Stated complaint: cramping/5 weeks Time Seen by Provider: 06/30/23 19:02 Source: patient, RN notes reviewed Mode of arrival: ambulatory Limitations: no limitations - History of Present Illness Initial comments: 32-year-old female presents emergency Department with chief complaint of cramping and vaginal bleeding in x2-3 days . Patient states that she is 5 weeks . Last menstrual period May 22. She admits to suprapubic cramping has been constant for the past 2 days. She states that she is having minimal vaginal spotting which is darker in color. Patient reports her blood type is AB+ and has not received rhogam in the past. - Related Data Home Medications Medication Instructions Recorded Confirmed [id number] Acid 1 cap PO AC-LUNCH 05/22/21 03/21/22 [-U Capsule (formulary)] valACYclovir HCL [Valtrex] 1,000 mg PO AC-LUNCH 05/22/21 03/21/22 Aspirin [Manter Aspirin EC] 81 mg PO DAILY 03/21/22 03/21/22 Omeprazole 20 mg PO DAILY 03/21/22 03/21/22 Allergies Allergy/AdvReac Type Severity Reaction Status Date / Time No Known Allergies Allergy Verified 06/30/23 17:43 Review of Systems ROS Statement: Those systems with pertinent positive or pertinent negative responses have been documented in the HPI. ROS Other: All systems not noted in ROS Statement are negative. Past Medical History Past Medical History: No Reported History Additional Past Medical History / Comment(s): Low back pain, bulging discs, pt is currently breast feeding. History of Any Multi-Drug Resistant Organisms: None Reported Past Surgical History: No Surgical Hx Reported Additional Past Surgical History / Comment(s): Willard teeth extractions with sedation. 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 Absent: scleral icterus, conjunctival injection, periorbital swelling ENT exam: Present: normal exam, mucous membranes moist Neck exam: Present: normal inspection. Absent: tenderness, meningismus, lymphadenopathy Respiratory exam: Present: normal lung sounds bilaterally. Absent: respiratory distress, wheezes, rales, rhonchi, stridor Cardiovascular Exam: Present: regular rate, normal rhythm, normal heart sounds. Absent: systolic murmur, diastolic murmur, rubs, gallop, clicks GI/Abdominal exam: Present: soft, normal bowel sounds. Absent: distended, tenderness, guarding, rebound, rigid Extremities exam: Present: normal inspection Back exam: Present: normal inspection Neurological exam: Present: alert, oriented X3 Psychiatric exam: Present: normal affect, normal mood Skin exam: Present: warm, dry, intact, normal color. Absent: rash Course Vital Signs 06/30/23 06/30/23 17:40 21:50 Temperature 98.4 F Pulse Rate 84 89 Respiratory 20 18 Rate Blood Pressure 145/84 142/72 O2 Sat by Pulse 100 98 Oximetry Medical Decision Making - Medical Decision Making Was pt. sent in by a medical professional or institution ([facility], [employer], urgent care, hospital, or care home...) When possible be specific @ -No Did you speak to anyone other than the patient for history (EMS, parent, family, police, friend...)? What history was obtained from this source @ -No Did you review nursing and triage notes (agree or disagree)? Why? @ -I reviewed and agree with nursing and triage notes Were old charts reviewed (outside hosp., previous admission, EMS record, old EKG, old radiological studies, urgent care reports/EKG's, care home records)? Report findings @ -No old charts were reviewed Differential Diagnosis (chest pain, altered mental status, abdominal pain women, abdominal pain men, vaginal bleeding, weakness, fever, dyspnea, syncope, headache, dizziness, GI bleed, back pain, seizure, CVA, palpatations, mental health, musculoskeletal)? @ -nDifferential Vaginal Bleeding: Spontaneous , threatened , molar , ectopic , bloody show, incompetent cervix, abruptioplacenta, placenta previa, uterine rupture, dysfunctional uterine bleeding, hemorrhage, uterine fibroids, this is not meant to be an all-inclusive list.e EKG interpreted by me (3pts min.). @ -None X-rays interpreted by me (1pt min.). @ -None done CT interpreted by me (1pt min.). @ -None done U/S interpreted by me (1pt. min.). @ -US obtained shows hypoechoic lesion on the right ovary with complex free fluid in the cul-de-sac, ectopic is not excluded, additional possibilities include normal early IUP, missed spontaneous as interpreted by the radiologist What testing was considered but not performed or refused? (CT, X-rays, U/S, labs)? Why? @ -None What meds were considered but not given or refused? Why? @ -None Did you discuss the management of the patient with other professionals (professionals i.e. , PA, [employer], lab, RT, psych nurse, social worker assistant, locks inspector, teacher, uniform patrol police officer, rehabilitation case coordinator)? Give summary @ -Management discussed with Dr. Brantley who recommended serial hCG in 48 hours and follow up with her in the office next week Was smoking cessation discussed for >3mins.? @ -No Was critical care preformed (if so, how long)? @ -No Were there social determinants of health that impacted care today? How? (Homelessness, low income, unemployed, alcoholism, drug addiction, transportation, low edu. Level, literacy, decrease access to med. care, senior care, rehab)? @ -No Was there de-escalation of care discussed even if they declined (Discuss DNR or withdrawal of care, Hospice)? DNR status @ -No What co-morbidities impacted this encounter? (DM, HTN, Smoking, COPD, CAD, Cancer, CVA, ARF, Chemo, Hep., AIDS, mental health diagnosis, sleep apnea, morbid obesity)? @ -None Was patient admitted / discharged? Hospital course, mention meds given and route, prescriptions, significant lab abnormalities, going to OR and other pertinent info. @ -Discharge. Patient presented to emergency department chief complaint of cramping and vaginal spotting in . Last menstrual period May 22. Laboratory studies obtained are nonactionable. Positive hCG 95,5. Patient is AB+ blood type. Ultrasound obtained which shows hypoechoic lesion on the right ovary with complex free fluid in the cul-de-sac. These findings were discussed with Dr. Brantley who is okay with serial hCGs in 48 hours and follow-up with her in the office next week. Findings discussed with patient and strict return precautions discussed. Patient stable at time of discharge. Case discussed my attending, Dr. Sosa Undiagnosed new problem with uncertain prognosis? @ -No Drug Therapy requiring intensive monitoring for toxicity (Heparin, Nitro, Insulin, Cardizem)? @ -No Were any procedures done? @ -No Diagnosis/symptom? @ -threatened miscarriage Acute, or Chronic, or Acute on Chronic? @ -acute Uncomplicated (without systemic symptoms) or Complicated (systemic symptoms)? @ -uncomplicated Side effects of treatment? @ -No Exacerbation, Progression, or Severe Exacerbation? @ -No Poses a threat to life or bodily function? How? (Chest pain, [place], [place], pneumonia, PE, COPD, DKA, ARF, appy, cholecystitis, CVA, Diverticulitis, Homicidal, Suicida l, threat to staff... and all critical care pts) @ -No - Lab Data Result diagrams: 06/30/23 20:12 06/30/23 20:12 Lab Results 06/30/23 06/30/23 06/30/23 Range/Units 20:12 20:12 20:12 WBC 8.2 (3.8-10.6) k/uL RBC 4.32 (3.80-5.40) m/uL Hgb 12.8 (11.4-16.0) gm/dL Hct 39.2 (34.0-46.0) % MCV 90.6 (80.0-100.0) fL MCH 29.6 (25.0-35.0) pg MCHC 32.7 (31.0-37.0) g/dL RDW 12.9 (11.5-15.5) % Plt Count 271 (150-450) k/uL MPV 8.1 Neutrophils % 64 % Lymphocytes % 31 % Monocytes % 3 % Eosinophils % 1 % Basophils % 0 % Neutrophils # 5.2 (1.3-7.7) k/uL Lymphocytes # 2.6 (1.0-4.8) k/uL Monocytes # 0.2 (0-1.0) k/uL Eosinophils # 0.0 (0-0.7) k/uL Basophils # 0.0 (0-0.2) k/uL PT 10.3 (9.0-12.0) sec INR 1.0 (<1.2) APTT 25.6 (22.0-30.0) sec Sodium 136 L (137-145) mmol/L Potassium 3.8 (3.5-5.1) mmol/L Chloride 102 (98-107) mmol/L Carbon Dioxide 23 (22-30) mmol/L Anion Gap 11 mmol/L BUN 6 L (7-17) mg/dL Creatinine 0.51 L (0.52-1.04) mg/dL Est GFR (CKD-EPI)AfAm >90 (>60 ml/min/1.73 sqM) Est GFR (CKD-EPI)NonAf >90 (>60 ml/min/1.73 sqM) Glucose 96 (74-99) mg/dL Calcium 9.6 (8.4-10.2) mg/dL Total Bilirubin 0.3 (0.2-1.3) mg/dL AST 22 (14-36) U/L ALT 15 (4-34) U/L Alkaline Phosphatase 78 (38-126) U/L Total Protein 8.1 (6.3-8.2) g/dL Albumin 4.6 (3.5-5.0) g/dL HCG, Quant 95.5 mIU/mL Urine Color Urine Appearance (Clear) Urine pH (5.0-8.0) Ur Specific [place] (1.001-1.035) Urine Protein (Negative) Urine Glucose (UA) (Negative) Urine Ketones (Negative) Urine Blood (Negative) Urine Nitrite (Negative) Urine Bilirubin (Negative) Urine Urobilinogen (<2.0) mg/dL Ur Leukocyte Esterase (Negative) Urine RBC (0-5) /hpf Urine WBC (0-5) /hpf Ur Squamous Epith Cells (0-4) /hpf Urine Mucus (None) /hpf 06/30/23 Range/Units 20:17 WBC (3.8-10.6) k/uL RBC (3.80-5.40) m/uL Hgb (11.4-16.0) gm/dL Hct (34.0-46.0) % MCV (80.0-100.0) fL MCH (25.0-35.0) pg MCHC (31.0-37.0) g/dL RDW (11.5-15.5) % Plt Count (150-450) k/uL MPV Neutrophils % % Lymphocytes % % Monocytes % % Eosinophils % % Basophils % % Neutrophils # (1.3-7.7) k/uL Lymphocytes # (1.0-4.8) k/uL Monocytes # (0-1.0) k/uL Eosinophils # (0-0.7) k/uL Basophils # (0-0.2) k/uL PT (9.0-12.0) sec INR (<1.2) APTT (22.0-30.0) sec Sodium (137-145) mmol/L Potassium (3.5-5.1) mmol/L Chloride (98-107) mmol/L Carbon Dioxide (22-30) mmol/L Anion Gap mmol/L BUN (7-17) mg/dL Creatinine (0.52-1.04) mg/dL Est GFR (CKD-EPI)AfAm (>60 ml/min/1.73 sqM) Est GFR (CKD-EPI)NonAf (>60 ml/min/1.73 sqM) Glucose (74-99) mg/dL Calcium (8.4-10.2) mg/dL Total Bilirubin (0.2-1.3) mg/dL AST (14-36) U/L ALT (4-34) U/L Alkaline Phosphatase (38-126) U/L Total Protein (6.3-8.2) g/dL Albumin (3.5-5.0) g/dL HCG, Quant mIU/mL Urine Color Light Yellow Urine Appearance Clear (Clear) Urine pH 5.5 (5.0-8.0) Ur Specific [place] 1.017 (1.001-1.035) Urine Protein Negative (Negative) Urine Glucose (UA) Negative (Negative) Urine Ketones Trace H (Negative) Urine Blood Trace H (Negative) Urine Nitrite Negative (Negative) Urine Bilirubin Negative (Negative) Urine Urobilinogen <2.0 (<2.0) mg/dL Ur Leukocyte Esterase Negative (Negative) Urine RBC <1 (0-5) /hpf Urine WBC 1 (0-5) /hpf Ur Squamous Epith Cells 6 H (0-4) /hpf Urine Mucus Few H (None) /hpf Disposition Clinical Impression: Vaginal bleeding during Disposition: HOME SELF-CARE Condition: Stable Instructions (If sedation given, give patient instructions): Threatened Miscarriage (ED) Additional Instructions: Please have bHCG redrawn in 48 hours. Return to the emergency department for increased pain, bleeding, development of fever. Follow up with Dr. Brantley in the office next week. Is patient prescribed a controlled substance at d/c from ED?: No Referrals: Paresh Dominguez MD [Primary Care Provider] - 1-2 days Eugenia Brantley DO [Doctor of Osteopathic Medicine] - 1-2 days
[2023-06-30 20:17] LABS: Basophils % (A) 0 %; Eosinophils % (A) 1 %; HCT 39.2 % (34.0-46.0); HGB 12.8 gm/dL (11.4-16.0); Lymphocytes # (A) 2.6 k/uL (1.0-4.8); Lymphocytes % (A) 31 %; MCH 29.6 pg (25.0-35.0); MCHC 32.7 g/dL (31.0-37.0); MCV 90.6 fL (80.0-100.0); Mean Platelet Volume 8.1; Monocytes # (A) 0.2 k/uL (0-1.0); Monocytes % (A) 3 %; Neutrophils # (A) 5.2 k/uL (1.3-7.7); Neutrophils % (A) 64 %; Platelet Count 271 k/uL (150-450); RBC 4.32 m/uL (3.80-5.40); RDW 12.9 % (11.5-15.5); WBC 8.2 k/uL (3.8-10.6)
[2023-06-30 20:22] LABS: Appearance,Urine Clear (Clear); Bilirubin,Urine Negative (Negative); Blood,Urine Trace (Negative); Color,Urine Light Yellow; Glucose,Urine (UA) Negative (Negative); Ketones,Urine Trace (Negative); Leukocyte Esterase,Urine Negative (Negative); Mucus,Urine Few /hpf; Nitrite,Urine Negative (Negative); PH, Urine 5.5 (5.0-8.0); Protein,Urine Negative (Negative); RBC,Urine <1 /hpf (0-5); Specific Gravity,Urine 1.017 (1.001-1.035); Squamous Epithelial Cell,Urine 6 /hpf (0-4); Urobilinogen,Urine <2.0 mg/dL (<2.0); WBC,Urine 1 /hpf (0-5)
[2023-06-30 20:26] LABS: Partial Thromboplastin Time 25.6 sec (22.0-30.0); Prothrombin Time 10.3 sec (9.0-12.0)
[2023-06-30 20:28] LABS: ALT 15 U/L (4-34); AST 22 U/L (14-36); African American GFR (CKD) >90 (>60 ml/min/1.73 sqM); Albumin 4.6 g/dL (3.5-5.0); Alkaline Phosphatase 78 U/L (38-126); Anion Gap 11 mmol/L; Blood Urea Nitrogen 6 mg/dL (7-17); Calcium 9.6 mg/dL (8.4-10.2); Carbon Dioxide 23 mmol/L (22-30); Chloride 102 mmol/L (98-107); Glucose 96 mg/dL (74-99); Non-African American GFR(CKD) >90 (>60 ml/min/1.73 sqM); Potassium 3.8 mmol/L (3.5-5.1); Sodium 136 mmol/L (137-145); Total Bilirubin 0.3 mg/dL (0.2-1.3); Total Protein 8.1 g/dL (6.3-8.2)
[2023-06-30 20:44] LABS: HCG,Quantitative Serum 95.5 mIU/mL
--- NOTE | 2023-06-30 21:17 | US ---
EXAMINATION TYPE: Transabdominal DATE OF EXAM: 06/30/2023 8:50 PM COMPARISON: NONE CLINICAL INDICATION: Female, 32 years old with history of cramping, bleeding 5 wks; severe cramping. spotting EXAM PERFORMED: Transvaginal (TV) and Transabdominal (TA) EXAM MEASUREMENTS: GESTATIONAL AGE / DATING Physician Established: Not yet established Dates by LMP: (5 weeks/4 days) EDC: 02/26/24 Dates by First Scan: No previous this is first scan Dates by Current Scan for: No IUP seen at this time MATERNAL ANATOMY Uterus: 8.0 x 4.8 x 6.3cm Right Ovary: 3.7 x 2.5 x 2.7cm Left Ovary: 2.6 x 1.2 x 1.3cm Post CDS / Adnexa: free fluid posterior cul-de-sac. possible subtle hypoechoic area right adnexa = 2. 0 x 1.6 x 1.7cm Presence of free fluid: yes Presence of corpus luteal cyst: yes, hypoechoic area right ovary = 2.3 x 1.7 x 1.7cm GESTATION / SURVEY IUP: No IUP seen at this time Date of LMP: 05/22/23 Beta HcG (if available): 95.5 IMPRESSION: No evidence for intrauterine at this time. There is hypoechoic lesion of the right ovary wi th complex free fluid within the cul-de-sac suggesting hemorrhagic fluid. Ectopic is not ex cluded. Additional possibilities include normal early IUP as well as missed spontaneous with ruptured hemorrhagic cyst. Correlate with serial beta hCG and/or ultrasound.
[2023-06-30 21:56] VITALS: BP 142/72; PULSE 89; RESP 18
== END 2023-06-30 22:11 | disposition home or self-care (01) ==
LOC: EC 17:05
DX: O20.0 Threatened abortion (principal); Z3A.01 Less than 8 weeks gestation of pregnancy
CPT/HCPCS: 36415; 76801; 76817; 80053; 81001; 84702; 85025; 85610; 85730; 99284

== ENCOUNTER → 2023-07-03 | Outpatient (CLI) | payer BC | END | disposition home or self-care (01) | LOC: LABWHC1 10:56 | PROVIDERS: ATTEND Family Medicine | DX: O20.0 Threatened abortion (principal); Z3A.00 Weeks of gestation of pregnancy not specified | CPT/HCPCS: 36415; 84702 ==

== ENCOUNTER → 2023-07-06 | Outpatient (CLI) | payer BC | END | disposition home or self-care (01) | LOC: LABWHC1 13:28 | PROVIDERS: ATTEND Obstetrics & Gynecology Obstetrics | DX: O03.9 Complete or unspecified spontaneous abortion without complication (principal); Z3A.00 Weeks of gestation of pregnancy not specified | CPT/HCPCS: 36415; 84702 ==

== ENCOUNTER → 2023-07-19 | Outpatient (CLI) | payer BC | END | disposition home or self-care (01) | LOC: LABWHC1 10:39 | PROVIDERS: ATTEND Obstetrics & Gynecology Obstetrics | DX: O03.9 Complete or unspecified spontaneous abortion without complication (principal); Z3A.00 Weeks of gestation of pregnancy not specified | CPT/HCPCS: 36415; 84702 ==